=== PATIENT | male | born 1980 | race Caucasian/White ===

== ENCOUNTER 2021-09-22 15:24 | Emergency (ER) | payer OTHER, SELFPAY ==
--- NOTE | 2021-09-22 15:26 | PC.NURSE ---
pt encouraged to stay but decides to leave immediately choosing not to wait. encouraged to return if symptoms change or worsen
== END 2021-09-23 02:03 | disposition left against medical advice (07) ==
LOC: ANHED 16:11
DX: Z53.21 Procedure and treatment not carried out due to patient leaving prior to being seen by health care provider (principal)
CPT/HCPCS: 99199

== ENCOUNTER 2022-07-30 13:43 | Emergency (ER) | payer OTHER, SELFPAY ==
[2022-07-30 14:13] VITALS: BP 147/106; PULSE 88; RESP 16; TEMP 36.5; O2SAT 99
--- NOTE | 2022-07-30 14:27 | ED.WOUNDLAC ---
HPI - Wound/Laceration General Chief Complaint: Wound/Laceration Stated Complaint: Left Hand Thumb Laceration Time Seen by Provider: 07/30/22 14:20 Source: patient Mode of arrival: ambulatory Limitations: no limitations History of Present Illness HPI narrative: Mr. Hodges is a 42-year-old male patient presenting to the clinic today with complaints of a laceration to his left thumb. He reports he was cutting a brisket and cut his finger with a knife. This occurred approximately 1 hour prior to arrival he reports that it continues to bleed. Able to flex and extend his left thumb without difficulty. Tetanus unknown Related Data Home Medications Medication Instructions Recorded Confirmed albuterol sulfate 90 mcg/actuation 2 puff inhalation DIRECTED 07/30/22 07/30/22 aerosol inhaler doxycycline hyclate 100 mg capsule 100 mg PO BID 07/30/22 07/30/22 fluticasone propionate 50 1 spray intranasal DIRECTED 07/30/22 07/30/22 mcg/actuation nasal spray,suspension losartan 25 mg tablet 25 mg PO DAILY 07/30/22 07/30/22 Allergies Allergy/AdvReac Type Severity Reaction Status Date / Time No Known Allergies Allergy Verified 07/30/22 14:04 Review of Systems Review of Systems: Pertinent positives per HPI. Patient denies any fever, chills, rash, headache, visual changes, dizziness, cough, runny nose, sore throat, shortness of breath, chest pain, palpitations, nausea, vomiting, diarrhea, constipation, abdominal pain, or any urinary issues. PMFSH Family History Family History Mother Family history of arthritis Comments At the time of my signature, I reviewed and agree with the nursing past medical, surgical, social, and family history. There is no relevant family history pertinent to the patient complaint. Exam Narrative: General: Well-developed, well nourished, in no apparent distress Head: Normocephalic, atraumatic. Cardio: Regular rate and rhythm, s1 and s2 normal, no murmur appreciated. Resp: Clear to auscultation bilaterally, no rhonchi, rales, wheezing or rubs. Integumentary: [place], warm, and dry, intact without lesion, 1.5 cm laceration to the dorsal aspect across the PIP joint of the left thigh. Bleeding controlled Course Course Emergency Course: Portions of this record may have been created with voice recognition software. Level of Care: Express Care Visit Vital Signs Vital signs: Vital Signs Temperature 36.5 C 07/30/22 14:13 Pulse Rate 88 07/30/22 14:13 Respiratory Rate 16 07/30/22 14:13 Blood Pressure 147/106 H 07/30/22 14:13 Pulse Oximetry 99 07/30/22 14:13 Oxygen Delivery Room Air 07/30/22 14:13 Temperature 36.5 C 07/30/22 14:13 Pulse Rate 88 07/30/22 14:13 Respiratory Rate 16 07/30/22 14:13 Blood Pressure 147/106 H 07/30/22 14:13 Pulse Oximetry 99 07/30/22 14:13 Oxygen Delivery Room Air 07/30/22 14:13 Vital signs reviewed Procedures Laceration Laceration 1: Date: 07/30/22 Site: hand ( left thumb) Side (If applicable): left Size (cm): 1.5 Description: linear Depth: simple, single layer Local Anesthetic: lidocaine 1% Amount of anesthesia used (mL): 1.5 Pre-repair: wound explored and irrigated ====== Skin Level ====== Skin layer closed with: nylon Size (cm): 5-0 Number of sutures: 4 Technique: simple, interrupted ====== Subcutaneous Layer ====== ====== Muscle Layer ====== ====== Tendon Layer ====== Dressing: Verbal consent obtained for laceration repair. Risk and benefits explained and patient voiced understanding. Area was cleansed with dermal wash and a 25 gauge needle was then used to instill 1.5 ml of 1% lidocaine without epi into the wound edges. Area was prepped and draped using sterile technique. A 5-0 suture on a p needle was used to place (4) interrupted
[2022-07-30] MEDS: TETANUS,DIPHTHERIA,AC PERTUSSIS ADULT (0.5 ML) BOOSTRIX IM (14:54)
[2022-07-30] MEDS: LIDOCAINE HCL 1% LOCAL INJ 2 ML AMPUL INFILTRATE (14:55)
== END 2022-07-30 15:09 | disposition home or self-care (01) ==
PROVIDERS: Emergency Provider Nurse Practitioner Family
DX: S61.012A Laceration without foreign body of left thumb without damage to nail, initial encounter (principal); W26.0XXA Contact with knife, initial encounter; Y93.G9 Activity, other involving cooking and grilling; Z23 Encounter for immunization
CPT/HCPCS: 12001; 90471; 90715; 99212; G0463

== ENCOUNTER 2022-08-09 13:49 | Emergency (ER) | payer OTHER, SELFPAY ==
[2022-08-09 13:59] VITALS: BP 151/105; PULSE 81; RESP 16; TEMP 36.3; O2SAT 99
[2022-08-09 14:00] VITALS: BP 151/105; PULSE 81; RESP 16; TEMP 36.3; O2SAT 99
--- NOTE | 2022-08-09 14:08 | ED.SKABFB ---
HPI - Skin/Abscess/Foreign Bdy General Chief complaint: Skin/Abscess/Foreign Body Stated complaint: REMOVAL OF STITCHES Time Seen by Provider: 08/09/22 14:28 Source: patient and RN notes reviewed Mode of arrival: ambulatory Limitations: no limitations History of Present Illness HPI narrative: 42-year-old male presents for suture removal. Reports he had 4 sutures placed in the 1st digit of his left hand. Reports he had the stitches placed on 07/30. He denies any concerns, swelling, drainage, pain. MD complaint: other (suture removal) Related Data Home Medications Medication Instructions Recorded Confirmed albuterol sulfate 90 mcg/actuation 2 puff inhalation DIRECTED 07/30/22 08/09/22 aerosol inhaler fluticasone propionate 50 1 spray intranasal DIRECTED 07/30/22 08/09/22 mcg/actuation nasal spray,suspension losartan 25 mg tablet 25 mg PO DAILY 07/30/22 08/09/22 Allergies Allergy/AdvReac Type Severity Reaction Status Date / Time No Known Allergies Allergy Verified 08/09/22 13:59 Review of Systems Review of Systems: CONSTITUTIONAL: Denies malaise, chills, sweats, or fever. SKIN: Reports healing sutures the 1st digit left hand MUSCULOSKELETAL: Denies muscle skeletal pain All systems reviewed & are unremarkable except as noted in HPI and below PMFSH Family History Family History Mother Family history of arthritis Comments At time of signature, agree with nursing past medical, surgical, social and family history. There is no relevant family history pertinent to the presenting complaint Exam Narrative: GENERAL: Well-appearing, well-nourished, and in no acute distress. HEAD: Normocephalic, atraumatic. EYES: PERRLA, conjunctivae clear ENT: Mucous membranes moist. NECK: Supple. No lymphadenopathy CHEST: Clear to auscultation. No respiratory distress. HEART: Regular rate and rhythm. SKIN: Warm, dry. Four intact sutures noted to the 1st digit of the left hand above the MIP joint, well-approximated no induration, edema, drainage NEURO: Alert and oriented x3. PSYCH: Normal mood and affect Course Course Emergency Course: Patient is aware of diagnosis, understands and agrees to treatment plan. Anticipatory guidance given. Patient agrees to follow-up as directed and is aware of reasons to seek care at the emergency department. Portions of this record may have been created with voice recognition software Level of Care: Express Care Visit Vital Signs Vital signs: Vital Signs Temperature 97.4 F L 08/09/22 13:59 Pulse Rate 81 08/09/22 13:59 Respiratory Rate 16 08/09/22 13:59 Blood Pressure 151/105 H 08/09/22 13:59 Pulse Oximetry 99 08/09/22 13:59 Oxygen Delivery Room Air 08/09/22 13:59 Temperature 97.4 F L 08/09/22 14:00 Pulse Rate 81 08/09/22 14:00 Respiratory Rate 16 08/09/22 14:00 Blood Pressure 151/105 H 08/09/22 14:00 Pulse Oximetry 99 08/09/22 14:00 Oxygen Delivery Room Air 08/09/22 14:00 Reviewed. MDM - Skin/Abscess/Foreign Bdy MDM Narrative Medical decision making narrative: Verbal consent was obtained. Wound well approximated, no erythema, induration, or discharge noted. Four completely removed in a sterile fashion. Patient tolerated procedure well, no complications. Patient advised to look for and return for any signs of infection such as redness, swelling, discharge, or worsening pain. Critical Care Time Critical Care Time Critical Care Time: No Discharge Plan Discharge Clinical Impression: Visit for suture removal Patient Disposition: Home, Self-Care Condition: Stable Instructions: Stitches Removal (ED) Additional Instructions: AFTER the stitches are removed: Clean your wound as directed. Carefully wash your wound with soap and water. Pat the area dry with a clean towel. Protect your wound. Your wound can swell, bleed, or split open if it is stretched or b
== END 2022-08-09 14:43 | disposition home or self-care (01) ==
PROVIDERS: Emergency Provider Nurse Practitioner
DX: S61.012D Laceration without foreign body of left thumb without damage to nail, subsequent encounter (principal); X58.XXXD Exposure to other specified factors, subsequent encounter; I10 Essential (primary) hypertension
CPT/HCPCS: 99211; G0463

== ENCOUNTER 2023-01-26 13:18 | Emergency (ER) | payer OTHER, SELFPAY ==
[2023-01-26] VITALS (19 sets, daily range): BP systolic 146–181; BP diastolic 95–144; PULSE 78–108; RESP 14–25; TEMP 36.8; O2SAT 96–100
--- NOTE | ~2023-01-26 | XR_ITS ---
EXAMINATION: XR chest 2V Exam Date/Time: 01/26/2023 14:15 CDT HISTORY: dizzy, SOB HX HTN Comparison: None available. RESULT: Lines, tubes, and devices: None. Lungs and pleura: Slightly low volumes with crowding, otherwise clear. Cardiomediastinal silhouette: Unremarkable. Other: No acute osseous or upper abdominal finding. IMPRESSION: No acute cardiopulmonary process. Reviewed, dictated and finalized at location K.
--- NOTE | 2023-01-26 13:20 | ECG_ITS ---
Measurements Intervals [place] Rate: 107 P: 27 [place]: 157 QRS: 73 QRSD: 86 T: 0 QT: 323 QTc: 431 Interpretive Statements SINUS TACHYCARDIA WITH OCCASIONAL VENTRICULAR PREMATURE COMPLEXES POOR R-WAVE PROGRESSION ABNORMAL RHYTHM ECG NO PREVIOUS ECG AVAILABLE FOR COMPARISON Electronically Signed On 01-27-2023 13:56:47 CDT by Perico Prakash M.D.
[2023-01-26 14:09] LABS: Basophils Percent Auto 0.4 % (0.2-1.2); Eosinophils Absolute Auto 0.2 K/mm3 (0-0.3); Eosinophils Percent Auto 2.2 % (0-4.4); Hematocrit 43.3 % (42.0-52.0); Hemoglobin 14.9 g/dL (14.0-18.0); Immature Granulocyte Absolute 0.03 K/mm3 (0.00-0.031); Immature Granulocyte Percent A 0.4 % (0-0.5); Lymphocytes Absolute Auto 1.86 K/mm3 (0.9-3.2); Mean Corpuscular HGB Conc 34.4 g/dl (32-36); Mean Corpuscular Hemoglobin 29.4 pg (26-34); Mean Corpuscular Volume 85.4 fl (80-100); Mean Platelet Volume 9.7 fl (7.4-10.4); Monocytes Absolute Auto 0.5 K/mm3 (0.1-0.6); Monocytes Percent Auto 7.8 % (2.6-8.5); Neutrophils Absolute Auto 4.3 K/mm3 (1.3-6.7); Neutrophils Percent Auto 62.2 % (45.5-73.1); Platelet Count Result 215 k/mm3 (150-375); Red Blood Count 5.07 M/mm3 (4.6-6.20); Red Cell Distribution Width 13.5 % (11.5-14.5); White Blood Count 6.9 K/mm3 (4.5-10.0)
[2023-01-26 14:17] LABS: Alanine Aminotransferase 67 U/L (6-50); Albumin Level 4.4 g/dL (3.5-5.1); Alkaline Phosphatase 93 U/L (38-126); Anion Gap 7 mmol/L (8-16); Aspartate Amino Transferase 35 U/L (17-59); Bilirubin,Total 0.5 mg/dL (0.2-1.3); Blood Urea Nitrogen 13 mg/dL (9-20); Calcium 8.5 mg/dL (8.4-10.2); Carbon Dioxide 27 mmol/L (22-30); Chloride 103 mmol/L (98-107); Estimated CRCL calculation 221 ml/min; Estimated Glomerular Filt Rate > 60; Glucose 109 mg/dL (65-110); Sodium 137 mmol/L (137-145)
[2023-01-26] MEDS: MECLIZINE HCL 25 MG TABLET PO (15:13)
--- NOTE | 2023-01-26 16:24 | ED.GENADULT ---
HPI - General Adult General Chief complaint: Dizziness Stated complaint: dizzy, High BP Time Seen by Provider: 01/26/23 13:56 History of Present Illness HPI narrative: Patient is a 42-year-old male who presents ER with dizziness. Ongoing over the last weekend. Intermittent nature. Worse with turning his head. Associate with sinus congestion. Was on a TeleDoc visit and they told him due to the fact that he had elevated blood pressures they had to tell him to go to the ER to be evaluated. Patient with history of chronic hypertension. No chest pain or chest pressure. No change in vision. No focal weakness of an arm or leg. Related Data Home Medications Medication Instructions Recorded Confirmed albuterol sulfate 90 mcg/actuation 2 puff inhalation DIRECTED 07/30/22 08/09/22 aerosol inhaler fluticasone propionate 50 1 spray intranasal DIRECTED 07/30/22 08/09/22 mcg/actuation nasal spray,suspension losartan 25 mg tablet 25 mg PO DAILY 07/30/22 08/09/22 Allergies Allergy/AdvReac Type Severity Reaction Status Date / Time No Known Allergies Allergy Verified 08/09/22 13:59 [facility] Past Medical History Medical History (Updated 01/26/23 @ 16:54 by Thom Aden MD) Hypertension Surgical History Surgical History (Updated 01/26/23 @ 16:54 by Thom Aden MD) No pertinent past surgical history Family History Family History Mother Family history of arthritis Exam Narrative: GENERAL: Well-appearing, well-nourished, and in no acute distress. HEAD: Normocephalic, atraumatic. EYES: PERRL and EOMI. ENT: Mucous membranes moist. TMs normal bilaterally. CHEST: Clear to auscultation. No respiratory distress. HEART: Regular rate and rhythm. Normal peripheral pulses. ABDOMEN: Soft, nontender, nondistended. EXTREMITIES: Normal range of motion. No edema. SKIN: Warm, dry, no rash. NEURO: Alert and oriented x3. PSYCH: Normal mood and affect. Course Course Emergency Course: Patient resting comfortably. Feels improved with meclizine. Informed of results. Blood pressure elevated and recommend follow-up with PCP for further management. Vital Signs Vital signs: Vital Signs Temperature 98.3 F 01/26/23 13:21 Pulse Rate 108 H 01/26/23 13:21 Respiratory Rate 20 01/26/23 13:21 Blood Pressure 153/110 H 01/26/23 13:21 Pulse Oximetry 97 01/26/23 13:21 Oxygen Delivery Room Air 01/26/23 13:21 Temperature 98.3 F 01/26/23 13:21 Pulse Rate 94 01/26/23 16:32 Respiratory Rate 16 01/26/23 16:32 Blood Pressure 159/128 H 01/26/23 16:32 Pulse Oximetry 98 01/26/23 16:32 Oxygen Delivery Room Air 01/26/23 13:21 Medical Decision Making Vital Signs Vital Signs: Vital Signs Temperature 98.3 F 01/26/23 13:21 Pulse Rate 108 H 01/26/23 13:21 Respiratory Rate 20 01/26/23 13:21 Blood Pressure 153/110 H 01/26/23 13:21 Pulse Oximetry 97 01/26/23 13:21 Oxygen Delivery Room Air 01/26/23 13:21 Temperature 98.3 F 01/26/23 13:21 Pulse Rate 94 01/26/23 16:32 Respiratory Rate 16 01/26/23 16:32 Blood Pressure 159/128 H 01/26/23 16:32 Pulse Oximetry 98 01/26/23 16:32 Oxygen Delivery Room Air 01/26/23 13:21 Lab Data 01/26/23 14:02 01/26/23 14:02 Labs: Lab Results 01/26/23 01/26/23 Range/Units 14:02 14:02 WBC 6.9 (4.5-10.0) K/mm3 RBC 5.07 (4.6-6.20) M/mm3 Hgb 14.9 (14.0-18.0) g/dL Hct 43.3 (42.0-52.0) % MCV 85.4 (80-100) fl MCH 29.4 (26-34) pg MCHC 34.4 (32-36) g/dl RDW 13.5 (11.5-14.5) % Plt Count 215 (150-375) k/mm3 MPV 9.7 (7.4-10.4) fl Immature Gran % (Auto) 0.4 (0-0.5) % Neut % (Auto) 62.2 (45.5-73.1) % Lymph % (Auto) 27.0 (18.3-44.2) % Wirt % (Auto) 7.8 (2.6-8.5) % Eos % (Auto) 2.2 (0-4.4) % Baso % (Auto) 0.4 (0.2-1.2) % Lymph # (Auto) 1.86 (0.9-3.2) K/mm3 M
== END 2023-01-26 17:04 | disposition home or self-care (01) ==
PROVIDERS: Emergency Provider Emergency Medicine; PCP Family Medicine
DX: R42 Dizziness and giddiness (principal); I10 Essential (primary) hypertension; J06.9 Acute upper respiratory infection, unspecified
CPT/HCPCS: 36415; 71046; 80053; 85025; 93005; 99283; A9270

== ENCOUNTER 2024-07-19 17:15 | Emergency (ER) | payer BC, SELFPAY ==
--- NOTE | ~2024-07-19 | XR_ITS ---
EXAMINATION: XR chest 2V DATE: 07/19/2024 17:56 INDICATION: Shortness of breath. Chest tightness. TECHNIQUE: Frontal and lateral views of the chest were obtained. COMPARISON: Chest 2 views 01/26/2023 FINDINGS: There is no pneumonia, pleural effusion, or pneumothorax. The heart size is normal. IMPRESSION: 1. No acute cardiopulmonary disease. Reviewed, dictated and finalized at location A.
[2024-07-19 17:22] VITALS: BP 142/91; PULSE 73; RESP 16; TEMP 36.4; O2SAT 100
--- NOTE | 2024-07-19 17:49 | ED.ASTHMA ---
HPI - Asthma General Chief Complaint: Asthma Stated Complaint: SOB Time Seen by Provider: 07/19/24 17:49 Source: patient, RN notes reviewed and old records reviewed Mode of arrival: ambulatory Limitations: no limitations History of Present Illness HPI Narrative: Patient with history of asthma presents with complaints of exacerbation over the past week. He reports that his asthma is typically well controlled, does become exit exacerbated by exercise. States that this happened approximately 1 week ago, admits that his primary care physician did call in steroids and an albuterol inhaler. Patient only took 1 dose of steroids, and has been used his inhaler only twice per day. He is not in any distress at this time. No wheezing or stridor noted. He reports that his chest feels tight and that he would like a chest x-ray because he is afraid that he has pneumonia. States that he has noted some wheezing when he is trying to sleep at night. Denies any fever, chills, sweats. Related Data Home Medications Medication Instructions Recorded Confirmed albuterol sulfate 90 mcg/actuation 2 puff inhalation DIRECTED 07/30/22 07/19/24 aerosol inhaler losartan 25 mg tablet 25 mg PO DAILY 07/30/22 07/19/24 azithromycin 250 mg tablet 250 mg PO DIRECTED 07/19/24 07/19/24 methylprednisolone 4 mg tablets in 4 mg PO DIRECTED 07/19/24 07/19/24 a dose pack Allergies Allergy/AdvReac Type Severity Reaction Status Date / Time No Known Allergies Allergy Verified 07/19/24 17:18 Review of Systems Review of Systems: All systems reviewed & are unremarkable except as noted in HPI and below Constitutional: Constitutional: Reports no additional constitutional complaints ENT: Reports system reviewed and no additional complaints, except as documented Cardiovascular: Cardiovascular: Reports no additional cardiovascular complaints Respiratory: Respiratory: Reports no additional respiratory complaints, Reports cough and Reports wheezing Gastrointestinal: Gastrointestinal: Reports no additional gastrointestinal complaints [facility] Past Medical History Medical History (Updated 07/19/24 @ 18:16 by Maria Luisa Cain APRN) Hypertension Surgical History Surgical History No pertinent past surgical history Family History Family History Mother Family history of arthritis Comments At the time of my signature, I reviewed and agree with the nursing past medical, surgical, social, and family history. There is no relevant family history pertinent to the patient complaint. Exam Const: General: cooperative, no acute distress, alert and awake Orientation/consciousness: oriented to person, oriented to place and oriented to time HENMT: Head: normal to inspection Mouth: Yes moist mucous membranes Throat: posterior oropharynx normal Resp: Effort & Inspection: normal respiratory effort and able to speak in complete sentences Auscultation: clear to auscultation bilaterally, no crackles, no rales, no rhonchi and no wheezes Cardio: Palpation: normal PMI Rate: regular rate Rhythm: regular rhythm Heart sounds: S1 normal heart sound present and S2 normal heart sound present Neuro: General: oriented to person, oriented to place and oriented to time Cranial nerves: Yes CN's II-XII intact bilaterally Psych: Appearance: grossly normal Thought process: Normal thought process present Insight: Good insight present (Psych) Judgement: Good judgement present (Psych) Course Course Level of Care: Express Care Visit Vital Signs Vital signs: Vital Signs Temperature 97.5 F L 07/19/24 17:22 Pulse Rate 73 07/19/24 17:22 Respiratory Rate 16 07/19/24 17:22 Blood Pressure 142/91 H 07/19/24 17:22 Pulse Oximetry 100 07/19/24 17:22 Oxygen Delivery Room Air 07/19/24 17:22 Temperature 97.5 F L 07/19/24 17:22 Pulse Rate 73
== END 2024-07-19 18:20 | disposition home or self-care (01) ==
PROVIDERS: Emergency Provider Nurse Practitioner Family; PCP Family Medicine
DX: J45.901 Unspecified asthma with (acute) exacerbation (principal); I10 Essential (primary) hypertension
CPT/HCPCS: 71046; 99213; G0463

== ENCOUNTER 2025-02-21 08:47 | Emergency (ER) | payer BC, SELFPAY ==
--- NOTE | ~2025-02-21 | XR_ITS ---
CHEST RADIOGRAPH, PA AND LATERAL CLINICAL HISTORY: sob/chest tightness 5x days nonsmoker hx sports asthma . COMPARISON: 07/19/2024 TECHNIQUE: PA and lateral views of the chest. FINDINGS The cardiomediastinal silhouette is unremarkable. The lungs are clear. Trace peribronchial thickening is noted. IMPRESSION: Trace peribronchial thickening, without focal infiltrate or effusion. Reviewed, dictated and finalized at location A.
--- NOTE | 2025-02-21 08:52 | ED.ASTHMA ---
HPI - Asthma General Chief Complaint: Upper Respiratory Infection Stated Complaint: Tight feeling of chest since Time Seen by Provider: 02/21/25 08:51 Source: patient Mode of arrival: ambulatory Limitations: no limitations History of Present Illness HPI Narrative: Bill is a 44-year-old male patient presenting to the clinic today with complaints of chest tightness x4 days. He reports has a nonproductive cough. Has felt like he has had chills and body aches. Has not tested for COVID. Had a telehealth visit on Thursday and was prescribed a Z-Jose Daniel and steroid. States he has taken those for 2 days and has no relief in symptoms. Also reports feeling lightheaded at times. Related Data Home Medications Medication Instructions Recorded Confirmed Last Taken Type albuterol sulfate 90 mcg/actuation 2 puff inhalation DIRECTED 07/30/22 02/21/25 Unknown History aerosol inhaler losartan 25 mg tablet 25 mg PO DAILY 07/30/22 02/21/25 Unknown History azithromycin 250 mg tablet 250 mg PO DIRECTED 07/19/24 02/21/25 Unknown History methylprednisolone 4 mg tablets in 4 mg PO DIRECTED 07/19/24 02/21/25 Unknown History a dose pack Allergies Allergy/AdvReac Type Severity Reaction Status Date / Time No Known Allergies Allergy Verified 07/19/24 17:18 Review of Systems Review of Systems: Pertinent positives per HPI. Patient denies any fever, chills, rash, headache, visual changes, dizziness, palpitations, nausea, vomiting, diarrhea, constipation, abdominal pain, or any urinary issues. PMFSH Past Medical History Medical History Hypertension Surgical History Surgical History No pertinent past surgical history Family History Family History Mother Family history of arthritis Comments At the time of my signature, I reviewed and agree with the nursing past medical, surgical, social, and family history. There is no relevant family history pertinent to the patient complaint. Exam Narrative: General: Well-developed, obese, in no apparent distress Head: Normocephalic, atraumatic Eyes: Pupils equally round and reactive to light bilaterally, EOM intact, sclera and conjunctive clear, no discharge, lids normal Ears: TMs intact and clear, ear canals clear, no drainage, grossly hearing normal. Nose: Nares patent, no discharge, no inflammation, no sinus tenderness. Mouth: Oral pharynx without lesions or masses, good dentition, MMM. Neck: Supple, trachea midline, no enlargement of anterior or posterior cervical nodes, no thyroid masses or goiter palpable. Cardio: Regular rate and rhythm, s1 and s2 normal, no murmur appreciated. Resp: Lung sounds diminished in the bases, no rhonchi, rales, wheezing or rubs Course Course Emergency Course: Portions of this record may have been created with voice recognition software. Level of Care: Express Care Visit Vital Signs Vital signs: Vital Signs Temperature 36.7 C 02/21/25 09:00 Pulse Rate 76 02/21/25 09:00 Respiratory Rate 18 02/21/25 09:00 Blood Pressure 177/111 H 02/21/25 09:00 Pulse Oximetry 98 02/21/25 09:00 Oxygen Delivery Room Air 02/21/25 09:00 Temperature 36.7 C 02/21/25 09:00 Pulse Rate 76 02/21/25 09:00 Respiratory Rate 18 02/21/25 09:00 Blood Pressure 152/106 H 02/21/25 09:32 Pulse Oximetry 98 02/21/25 09:00 Oxygen Delivery Room Air 02/21/25 09:00 Vital signs reviewed MDM - Asthma MDM Narrative Medical decision making narrative: At the time of visit patient is resting comfortably on the exam table. Patient appears to be nontoxic. EKG: EKG shows sinus rhythm with a heart rate of 70 beats per minute without ST elevation, depression, or T-wave inversion. Labs: COVID and influenza testing was performed and negative in the clinic today. Diagnostics: Chest x-ray was performed and shows peribronchial thickening. No sign of pneumonia or effusion. Plan: I suspect patient has bronchitis. Supportive measures were discussed with the patient and they voiced understanding discharge instructions and agrees to treatment plan. Return precautions reviewed Differential Diagnosis Differential diagnosis: Likely Acute exacerbation, Status asthmaticus, Acute asthmatic bronchitis, Pneumonia, COPD exacerbation, Pulmonary edema systolic and Pneumothorax Lab Data Labs: Lab Results 02/21/25 02/21/25 Range/Units 09:18 09:24 POC Influenza A Ag Negative (Negative) POC Influenza B Ag Negative (Negative) POC SARS CoV-2 Ag Negative (Negative) Imaging Data Radiologist's impression: ITS Impressions Chest X-Ray 02/21/25 09:14 IMPRESSION: Trace peribronchial thickening, without focal infiltrate or effusion. ECG Data EKG #1: Attestation: I personally reviewed and interpreted this ECG as follows: ECG completion date: 02/21/25 ECG completion time: 09:33 Prior ECG tracings: not available for review Interpretation: EKG shows normal sinus rhythm with heart rate 78 beats per minute without ST elevation, depression, or T-wave inversion. OR interval is 136 milliseconds, QRS durations 90 milliseconds, QT-QTC is 361-394 milliseconds, P-R-T axis is 14 39 5 Discharge Plan Discharge Clinical Impression: Bronchitis Patient Disposition: Home Condition: Stable Instructions: Antibiotic Form, Acute Bronchitis (ED) Additional Instructions: Take prescription medications only as prescribed-albuterol inhaler Continue taking azithromycin and methylprednisone as directed Increase fluids and stay well hydrated Tylenol/motrin for pain/fever Flonase and OTC antihistamines as directed Vicks vapor rub to open sinuses Sinus rinses for congestion Cepacol spray, cough drops, throat lozenges, warm tea with honey/lemon, gargle salt water to soothe throat BRAT diet for diarrhea Clear liquids x 24 hours then advance as tolerated for nausea/vomiting Go to the ED if you develop a worsening in your condition- high fever not controlled by Tylenol or Motrin, dehydration, weakness, lethargy, shortness of breath, or chest pain. Follow up with your PCP in 3-5 days if symptoms persist. Patient Language: [place] Prescriptions: No Action losartan 25 mg tablet 25 mg PO DAILY albuterol sulfate 90 mcg/actuation HFA aerosol inhaler 2 puff INHALATION DIRECTED azithromycin 250 mg tablet 250 mg PO DIRECTED methylprednisolone 4 mg tablets,dose pack 4 mg PO DIRECTED Follow-up/Referrals: Duong Espana APRN [Emergency Provider] - Time of Disposition: 09:44 Quality NIHSS Nursing Documentation ED NIHSS nursing documentation: reviewed/agree
[2025-02-21 09:00] VITALS: BP 177/111; PULSE 76; RESP 18; TEMP 36.7; O2SAT 98
--- NOTE | 2025-02-21 09:04 | ECG_ITS ---
Test Date: 2025-02-21 09:33:38 Measurements Intervals [place] Rate: 78 P: 14 [place]: 136 QRS: 39 QRSD: 90 T: 5 QT: 361 QTc: 412 Interpretive Statements SINUS RHYTHM No previous ECG available for comparison Electronically Signed On 02-21-2025 13:37:16 CDT by Perico Prakash M.D.
[2025-02-21 09:20] LABS: EDCOVIDSCREEN Negative (Negative)
[2025-02-21 09:26] LABS: EDINFLUASCREEN Negative (Negative); EDINFLUBSCREEN Negative (Negative)
[2025-02-21 09:32] VITALS: BP 152/106
== END 2025-02-21 09:52 | disposition home or self-care (01) ==
PROVIDERS: Emergency Provider Nurse Practitioner Family
DX: J40 Bronchitis, not specified as acute or chronic (principal); Z20.822 Contact with and (suspected) exposure to COVID-19; I10 Essential (primary) hypertension
CPT/HCPCS: 71046; 87426; 87804; 93005; 99213; G0463

== ENCOUNTER 2025-06-09 16:16 | Emergency (ER) | payer BC, SELFPAY ==
--- NOTE | ~2025-06-09 | XR_ITS ---
EXAMINATION: XR chest 2V 06/09/2025 19:29 INDICATION: Congestion PROCEDURE: 2 view chest COMPARISON: 02/21/2025 FINDINGS: The lungs are clear. The cardiomediastinal silhouette is within normal limits. There are no pleural effusions. There is no pneumothorax suspected. IMPRESSION: 1: NO ACUTE CARDIOPULMONARY DISEASE. Reviewed, dictated and finalized at location O.
--- NOTE | ~2025-06-09 | CT_ITS ---
EXAMINATION: CTA brain carotid DATE: 06/09/2025 20:02 CDT INDICATION: Headache. Neck pain. TECHNIQUE: Computed tomographic angiography (CTA) of the head was performed without and with 100 mL Omnipaque-350 intravenous contrast. CTA of the neck was performed with intravenous contrast. The dose-length product was 1820.91 mGy-cm. Maximum intensity projection and volume rendered 3D-reconstructions were created by the technologist on a separate workstation. COMPARISON: None. FINDINGS: HEAD CTA: Normal brain parenchymal volume. No acute infarction, hemorrhage, mass or mass effect. No ventriculomegaly or midline shift. Basilar cisterns are patent. Paranasal sinuses and mastoids are pneumatized. No depressed skull fractures. There are codominant vertebral arteries. The intracranial arteries are within normal limits without significant stenosis, occlusion or aneurysm. NECK CTA: Lung apices are normal. No significant stenosis of the carotid arteries. No evidence for occlusion or dissection. Vertebral arteries are normal in their extent. The origin of the carotid and vertebral arteries are within normal limits. No cervical lymphadenopathy. IMPRESSION: 1.: Unremarkable CT angiogram of the head and neck. Reviewed, dictated and finalized at location O.
[2025-06-09 16:19] VITALS: BP 175/111; PULSE 94; RESP 20; TEMP 36.4; O2SAT 99
--- OUTSIDE RECORDS SUMMARY | 2025-06-09 18:18 | XMS_ITS | Encounter Summary ---
Author Organization [facility] Address [address] [place] [address] Phone Care Team Providers Care Crayon Grader Name Role Phone Marcial Thompson MD Primary Care Provider [phone] Dc Torres MD Unavailable Reason for Visit * Reason Comments Medication Refill Encounter Details Date Type Department Care Team (Late st Contact Info) Description 07/10/2023 Refill [facility] - [facility] [address]2 [place] [address] Marcial Thompson MD #[address] [address] Medication Refill Social History Tobacco Use Types Packs/Day Years Used Date Smoking Tobacco: Former Cigarettes 1.5 9 0 10/05/1996 - 10/05/2003 Smokeless Tobacco: Never Alcohol Use Standard Drinks/Week Comments Never 0 (1 standard drink = 0.6 oz pur e alcohol) AUDIT-C Answer Date Recorded Frequency of Alcohol Consumption Never 04/13/2019 Average Number of Drinks Not on file 019 Frequency of Binge Drinking Not on file 04/04 PHQ-2 Answer Date Recorded Total Score - Questions 1-9 0 06/05 Education Answer Date Recorded What is the highest level of school you have completed or the highest degree you have received? Master's degree (e.g., MA, MS, Margy, MEd, TAXICAB DISPATCHER, YESENIA) 08/20/2020 Sexually Active Control Partners Comments Not Currently Female Sex and Gender Information Value Date Recorded Sex Assigned at Not on file Legal Sex Male 9:24 PM CDT Gender Identity Not on file Sexual Orientation Not on file COVID-19 Exposure Response Date Recorded In the last 10 days, have yo u been in contact with someone who was confirmed or suspected to have Coronavirus/COVID-19? No / Unsure 07/06/2023 9:33 AM CDT documented as of this encounter Miscellaneous Notes * Telephone Encounter - Wendie Campos RN - 07/13/2023 8:04 AM CDT Medication failed the protocol, provider to review and approve the medication order if appropriate. Requested Prescriptions Pending Prescriptions Disp Refills losartan (COZAAR) 25 MG Tablet [Pharmacy Med Name: Losartan Potassium 25 MG Oral Tablet] 90 Tablet 3 Sig: Take 1 tablet by mouth once daily ARB Protocol Failed - 07/10/2023 6:08 PM Failed - Serum potassium on record in past 12 months No results found for: POTASSIUM, POCTK Failed - GFR on record in past 12 months No results found for: GFRNA Passed - BP on record in the past year Clinician-entered: BP Readings from Last 3 Encounters: 07/06/23 130/86 08/12/22 138/88 07/30/22 (!) 158/100 Patient-entered: No data recorded Passed - Visit with relevant provider in past year or upcoming 90 days Recent Visits Date Type Provider Dept 07/06/23 Office Visit [facility] APRN, REGIONAL DRIVER [facility] 05/28/23 Telemedicine Marcial Thompson MD [facility] 01/28/23 Telemedicine Pippa Victoria APRN, REGIONAL DRIVER [facility] 10/09/22 Telemedicine Marcial Thompson MD [facility] 07/17/22 Office Visit Marcial Thompson MD [facility] Showing recent visits within past 365 days and meeting all other requirements Future Appointments No visits were found meeting these conditions. Showing future appointments within next 90 days and meeting all other requirements documented in this encounter Plan of Treatment Upcoming Encounters Date Type Department Care Team (Late st Contact Info) Description 06/14/2025 1:00 PM CDT Office Visit [facility]2 [place] [address] Marcial Thompson MD #[address] [address] 07/05/2025 9:00 AM CDT Office Visit [facility] #2 [place] [address] Marcial Thompson MD #[address] [address] 07/20/2025 12:00 PM CDT [facility] [address] [place] [address] Dc Torres MD #[address] [address] 07/20/2025 12:00 PM CDT - 07/20/2025 12:30 PM CDT [facility] [address] [place] [address] Dc Torres MD #[address] [address] COLONOSCOPY Scheduled Procedures Name Priority Associated Diagnoses Date/Ti me COLONOSCOPY SCREENING FOR COLON CANCER 07/20/2025 12:00 PM CDT documented as of this encounter Visit Diagnoses Not on filedocumented in this encounter Additional Health Concerns Assessment Noted Time PHQ-9 Depression Total Score: 0 07/02/20 3:00 PM CDT documented as of this encounter Care Teams Crayon Grader Relationship Specialty Start Date End Date Marcial Thompson MD #2 [facility] [address] [place] [address] PCP - General Family Medicine 08/13/15 Dc Torres MD #2 [facility] [address] [place] [address] Consulting Physician Colon and Rectal Surgery 07/29/22 documented as of this encounter
--- OUTSIDE RECORDS SUMMARY | 2025-06-09 18:18 | XMS_ITS | Clinical Summary ---
Author Organization [facility] Address [address] [place] [address] Care Team Providers Care Sequencing Machine Operator Name Role Phone Unavailable Primary Care Provider Unavailabl e Source Comments [facility],non-owned Affiliates and Associated Physician Practices is amultiple site organization consisting of ambulatory clinics and hospital sitesin [place], [place], [place] and [place]. This disclosure is being madepursuant to the Care Everywhere program and may not contain all information available regarding this patient. Last updated [email or web address] Allergies No known active allergies Social History Tobacco Use Types Packs/Day Years Used Date Smoking Tobacco: Never Assessed Sex and Gender Information Value Date Recorded Sex Assigned at Not on file Legal Sex Male 1:07 PM CDT Gender Identity Not on file Sexual Orientation Not on file Last Filed Vital Signs Vital Sign Reading Time Taken Comments Blood Pressure 163/101 09/24/2021 9:32 PM REMOTE SENSING SCIENTIST Pulse 82 09/24/2021 6:04 PM REMOTE SENSING SCIENTIST Temperature 36.8 C (98.2 F) 09/24/2021 6:04 PM REMOTE SENSING SCIENTIST Respiratory Rate 18 09/24/2021 6:04 PM REMOTE SENSING SCIENTIST Oxygen Saturation 97% 09/24/2021 6:04 PM REMOTE SENSING SCIENTIST Inhaled Oxygen Concentration - - Weight 122 kg (269 lb) 09/24/2021 6:04 PM REMOTE SENSING SCIENTIST Height 182.9 cm (6') 09/24/2021 6:04 PM REMOTE SENSING SCIENTIST Body Mass Index 36.48 09/24/2021 6:04 PM REMOTE SENSING SCIENTIST Plan of Treatment Health Maintenance Due Date Last Done Comments COLOGUARD (AGES 45-75) - COL ON CA SCREENING 1980 COLON MONITORING 1980 COLONOSCOPY - COLON CA SCREENING 1980 CT COLONOGRAPHY - COLON CA SCREENING 1980 Colorectal Cancer Screening 1980 FIT - COLON CA SCREENING 1980 FLEX SIG - COLON CA SCREENING 1980 LIPID TESTING 1980 HIV SCREENING 1995 HEPATITIS C SCREENING 03/10/1998 DTAP/TDAP/TD VACCINES (1 - Tdap) 1999 HEPATITIS B VACCINE (1 of 3 - 19+ 3-dose series) 1999 HPV VACCINE (1 - 3-dose SCDM series) 2007 COVID-19 VACCINE (1 - 2023-2 5 season) 2024 DEPRESSION SCREENING 10/05/2024 INFLUENZA VACCINE (#1) 2025 ZOSTER VACCINE (1 of 2) 2030 HIB VACCINE Aged Out No longer eligi ble based on patient's age to complete this topic MENINGOCOCCAL (Group B) VACC INE SHARED DECISION-MAKING Aged Out No longer eligibl e based on patient's age to complete this topic MENINGOCOCCAL GROUPS A/C/Y/W VACCINE Aged Out No longer eligible b ased on patient's age to complete this topic PNEUMOCOCCAL VACCINE Aged Out No long er eligible based on patient's age to complete this topic
--- OUTSIDE RECORDS SUMMARY | 2025-06-09 18:18 | XMS_ITS | Clinical Summary ---
Author Organization [facility] Address [address] [facility] [address] [place] [address] Phone Care Team Providers Care Gameplay Engineer Name Role Phone Marcial Thompson MD Primary Care Provider [phone] Dc Torres MD Unavailable Allergies No known active allergies Medications Loratadine-Pseu doephedrine (CLARITIN-D 12 HOUR PO) Take by mouth. Activ e ibuprofen (MOTRIN) 800 MG TabletIndicatio ns:Bilateral arm pain Take 1 Tablet by mouth every 8 hours. 45 Tablet 1 1 Active fluticasone (FLONASE) 50 MCG/ACT Suspension 1-2 Sprays by Nasal route daily. Use in each nostril as directed. 18.2 mL 3 3 Active albuterol 108 (90 Base) MCG/ACT Aerosol Solution INHALE 1 TO 2 PUFFS BY MOUTH EVERY 4 HOURS NEEDED FOR COUGH 18 g 1 4 Active Respiratory Therapy Supplies (Nebulizer/Tubi ng/Mouthpiece) KitIndications: Exacerbation of asthma, unspecified asthma severity, unspecified whether persistent Use as directed 1 Each 5 Active Additional Information Patient not taking.Reported on 05/16/2025 albuterol (PROVENTIL, VENTOLIN) (2.5 MG/3ML) 0.083% Nebulizer SolnIndications :Exacerbation of asthma, unspecified asthma severity, unspecified whether persistent 3 mL by Nebulization route every 6 hours as needed for Wheezing or Shortness of Breath. 375 mL 1 5 Active losartan (COZAAR) 25 MG Tablet Take 1 Tablet by mouth daily. 90 Tablet 3 Active azithromycin (ZITHROMAX) 250 MG Tablet TAKE 2 TABLETS BY MOUTH ON DAY 1, AND THEN TAKE 1 TABLET BY MOUTH ONCE A DAY ON DAY 2 THROUGH DAY 5 Active predniSONE (DELTASONE) 5 MG Tablet take 1 tablet by mouth every 12 hours for 5 days 5 Active Active Problems Problem Noted Date Diagnosed Date Environmental and seasonal allergies 04/26/2025 Mild intermittent asthma without complication Snoring 03/20/2025 Exacerbation of asthma 07/28/2024 Otalgia of both ears 05/28/2023 Hyperglycemia 07/17/2022 Low testosterone in male 09/26/2021 Noncompliance 07/02/2021 Hypertension 07/02/2021 Rectal pain 07/02/2021 Obesity (BMI 30-39.9) 07/02/2021 COVID-19 08/20/2020 Overview (08/20/2020): Lipoma of head 04/13/2019 Hyperlipidemia 03/24/2019 PNAR (perennial non-allergic rhinitis) 6 Fatigue 05/12/2016 Primary insomnia 05/12/2016 Resolved Problems Problem Noted Date Diagnosed Date Resolved Date Anxiety 05/12/2016 03/24/2019 Encounters Date Type Department Care Team Description 06/09/2025 Travel 05/16/2025 9:15 AM CDT Office Visit [facility] Medical [facility] - General Surgery [facility] [address] [id number] Marcial Thompson MD Kumar, Raman, MD Special screening for malignant neoplasms, colon (Primary Dx) Discharge Disposition: Discharged to home or Selfcare 05/16/2025 Travel 04/26/2025 8:15 AM CDT Office Visit [facility] Family Medicine [facility] [address] [place] [phone] Steffanie Bergeron, MUSIC SUPERVISOR, SENIOR C SOFTWARE ENGINEER Acute intractable tension-type headache (Primary Dx); Environmental and seasonal allergies; Primary hypertension Discharge Disposition: Discharged to home or Selfcare 04/25/2025 Travel 04/19/2025 2:36 PM CDT - 04/19/2025 6:15 PM CDT Emergency [facility] [address] [place] [address] Bryant Worley MD Nonintractable headache, unspecified chronicity pattern, unspecified headache type Discharge Disposition: Discharged to home or Selfcare 04/19/2025 1:50 PM CDT Urgent Care Visit [facility] [address] [place] [address] Provider, [facility] Acute nonintractable headache, unspecified headache type (Primary Dx) Discharge Disposition: Discharged to home or Selfcare 04/19/2025 [facility]phone [facility] [place] [address] Marcial Thompson MD 04/19/2025 Travel 03/20/2025 11:15 AM CDT [facility] [place] [address] Marcial Thompson MD Primary hypertension (Primary Dx); Obesity (BMI 30-39.9); Mild intermittent asthma without complication; Snoring; Screening for colon cancer; Screening for prostate cancer; Hyperlipidemia, unspecified hyperlipidemia type; Vitamin D deficiency Discharge Disposition: Discharged to home or Selfcare 03/20/2025 [facility]phone [facility] [place] [address] Marcial Thompson MD 03/20/2025 Travel from Last 3 Months Immunizations Immunization Administration Dates Next Due TDAP Vaccine 07/30/2022 Family History Medical History Relation Name Comments Hypertension Father Andrew Cancer Maternal Cousin throat cance r Chronic Obstructive Pulmonary Disease Maternal Grandfa ther Chronic Obstructive Pulmonary Disease Maternal Grandmo ther Leukemia/Lymphoma Maternal Uncle Anxiety disorder Mother Dementia Paternal Grandfather Diabetes Paternal Grandfather No Known Problems Paternal Grandmother Anxiety disorder Sister 1 No Known Problems Sister 2 Relation Name Status Comments Father Andrew Alive Maternal Cousin Maternal Grandfather Maternal Grandmother Maternal Uncle Mother Alive Paternal Grandfather Paternal Grandmother Alive Sister 1 Alive Sister 2 Alive Social History Tobacco Use Types Packs/Day Years Used Date Smoking Tobacco: Former Cigarettes 1.5 9 0 10/05/1996 - 10/05/2003 Smokeless Tobacco: Never Tobacco Cessation:Counseling Given: No Alcohol Use Standard Drinks/Week Comments Never 0 (1 standard drink = 0.6 oz pur e alcohol) [facility] Utilities Answer Date Recorded In the past 12 months has e electric, gas, oil, or water company threatened to shut off services in your home? Yes 07/04/2024 Social Connection and Isolation Panel Answer Date Recorded In a typical week, how many times do you talk on the phone with family, friends, or neighbors? More than three times a week 07/04/2024 How often do you get togethe r with friends or relatives? More than three times a week 07/04/2024 How often do you attend chur ch or restorationism services? More than 4 times per year 07/04/2024 Do you belong to any clubs o r organizations such as christianity groups, unions, fraternal or athletic groups, or school groups? Yes 07/04/2024 How often do you attend meet ings of the clubs or organizations you belong to? More than 4 times per year 07/04/2024 Are you , , di vorced, , never , or living with a partner? 07/04/2024 AUDIT-C Answer Date Recorded Q1: How often do you have a drink containing alcohol? Patient declined 07/04/2024 Q2: How many drinks containi ng alcohol do you have on a typical day when you are drinking? Patient does not drink Q3: How often do you have si x or more drinks on one occasion? Patient declined 07/04/2024 Overall Financial Resource Strain (CARDIA) Answe r Date Recorded How hard is it for you to pa y for the very basics like food, housing, medical care, and heating? Somewhat hard 07/04/2024 PHQ-2 Answer Date Recorded Total Score - Questions 1-9 0 03/05 [facility] - Occupational Stress Questionnaire Answer Date Recorded Do you feel stress - tense, restless, nervous, or anxious, or unable to sleep at night because your mind is troubled all the time - these days? Not at all 07/04/2024 Exercise Vital Sign Answer Date Recorde d On average, how many days pe r week do you engage in moderate to strenuous exercise (like a brisk walk)? 7 days 07/04/2024 On average, how many minutes do you engage in exercise at this level? 120 min 07/04/2024 Hunger Vital Sign Answer Date Recorded Within the past 12 months, y ou worried that your food would run out before you got the money to buy more. Patient declined Within the past 12 months, t he food you bought just didn't last and you didn't have money to get more. Patient declined PRAPARE - Transportation Answer Date Re corded In the past 12 months, has l ack of transportation kept you from medical appointments or from getting medications? Patient declined 07/04/2024 In the past 12 months, has l ack of transportation kept you from meetings, work, or from getting things needed for daily living? Patient declined 07/04/2024 Housing Stability Vital Sign Answer Ronan e Recorded In the last 12 months, was t here a time when you were not able to pay the mortgage or rent on time? Patient declined 07/04/20 24 In the past 12 months, how m any times have you moved where you were living? 0 07/04/2024 At any time in the past 12 m [facility], were you homeless or living in a custodial (including now)? No 07/04/2024 Education Answer Date Recorded What is the highest level of school you have completed or the highest degree you have received? Master's degree (e.g., MA, MS, Margy, MEd, TOOL MACHINIST, YESENIA) 08/20/2020 Sexually Active Control Partners Comments Not Currently Abstinence Female Sex and Gender Information Value Date Recorded Sex Assigned at Not on file Legal Sex Male 9:24 PM CDT Gender Identity Not on file Sexual Orientation Not on file Last Filed Vital Signs Vital Sign Reading Time Taken Comments Blood Pressure 192/102 05/16/2025 9:08 AM CDT Pulse 86 05/16/2025 9:08 AM CDT Temperature 36.1 C (97 F) 05/16/2025 9:08 AM CDT Respiratory Rate 16 04/26/2025 8:17 AM CDT Oxygen Saturation 98% 05/16/2025 9:08 AM CDT Inhaled Oxygen Concentration - - Weight 134.3 kg (296 lb) 05/16/2025 9:08 AM CDT Height 180.3 cm (5' 11) 05/16/2025 9:08 AM CDT Body Mass Index 41.28 05/16/2025 9:08 AM CDT Plan of Treatment Upcoming Encounters Date Type Department Care Team (Late st Contact Info) Description 06/14/2025 1:00 PM CDT [facility] [place] [address] Marcial Thompson MD #[address] [address] 07/05/2025 9:00 AM CDT [facility] [place] [address] Marcial Thompson MD #[address] [address] 07/20/2025 12:00 PM CDT Hospital Encounter [facility] Periop 1 [place] [address] Dc Torres MD #[address] [address] 07/20/2025 12:00 PM CDT - 07/20/2025 12:30 PM CDT [facility] [address] [place] [address] Dc Torres MD [address] [address] COLONOSCOPY Scheduled Procedures Name Priority Associated Diagnoses Date/Ti me COLONOSCOPY SCREENING FOR COLON CANCER 07/20/2025 12:00 PM CDT Health Maintenance Due Date Last Done Comments Hepatitis B Immunization (1 of 3 - 19+ 3-dose series) 1999 Pneumococcal Immunization Co mbined (1 of 2 - PCV) 1999 Human Papillomavirus (HPV) Immunization (1 - 3-dose SCDM series) 2007 Cologuard 2025 Colonoscopy 2025 Colorectal Cancer Screening 2025 Immunochemical Fecal Occult Blood 2025 Influenza Immunization (#1) 2025 SARS-COV-2 Immunization ( - ) 06/05/2025 Td Immunization Every 10 Yea rs (Adults With 1 Tdap) 07/30/2032 07/30/2022 Respiratory Syncytial Virus (RSV) Immunization (Adult) (1 - 1-dose 75+ series) 2055 Hepatitis C Virus (HCV) Screening Completed 021 Meningococcal Immunization (ACWY) Aged Out No longer eligible based on patient's age to complete this topic Rotavirus Immunization Aged Out No lo nger eligible based on patient's age to complete this topic Procedures Procedure Name Priority Date/Time Associated Diagnosis Comments CT HEAD OR BRAIN WO CONTRAST Stat with Interpretation 04/19/2025 4:21 PM CDT EKG 12 LEAD STAT 04/19/2025 2:34 PM CDT EKG SCAN 04/19/2025 12:00 AM CDT HEPATITIS PANEL ACUTE (AHP) Routine 09/18/2021 12:00 AM GRID MAKER Exposure to sexually transmitted disease (STD) from Last 3 Months or Most Recently Relevant to Health Maintenance Results * CT HEAD OR BRAIN WO CONTRAST (04/19/2025 4:21 PM CDT) Anatomical Region Laterality Modality Head N/A Computed Tomogra phy 04/19/2025 4:40 PM CDT Impressions 04/19/2025 4:42 PM CDT IMPRESSION: No acute intracranial findings. Narrative 04/19/2025 4:42 PM CDT EXAM DESCRIPTION: CT HEAD OR BRAIN WO CONTRAST REASON FOR STUDY: right sided headache, elevated BP x 4 days. pt states pain radiates into right side of neck. Hx of HTN TECHNIQUE: Axial images acquired through the brain without intravenous contrast. Images stored on PACS. Automated exposure control was used as a dose optimization technique for this examination. COMPARISON: None FINDINGS: BRAIN: No hemorrhage, edema or mass effect. No recent infarct. Normal white matter. EXTRA-AXIAL SPACES: No fluid collections. No masses. CALVARIUM: No fracture. SINUSES/MASTOIDS: No fluid or mucosal thickening. ORBITS: No significant abnormality. OTHER: No other significant abnormality. THIS IS AN ELECTRONICALLY VERIFIED FINAL REPORT 04/19/2025 4:40 PM - Electronically signed by Torsten Alexander M.D. BS: BS Report ID: [id number] Reading Location: [id number] Procedure Note Torsten Alexander MD - 04/19/2025 EXAM DESCRIPTION: CT HEAD OR BRAIN WO CONTRAST REASON FOR STUDY: right sided headache, elevated BP x 4 days. pt states pain radiates into right side of neck. Hx of HTN TECHNIQUE: Axial images acquired through the brain without intravenous contrast. Images stored on PACS. Automated exposure control was used as a dose optimization technique for this examination. COMPARISON: None FINDINGS: BRAIN: No hemorrhage, edema or mass effect. No recent infarct. Normal white matter. EXTRA-AXIAL SPACES: No fluid collections. No masses. CALVARIUM: No fracture. SINUSES/MASTOIDS: No fluid or mucosal thickening. ORBITS: No significant abnormality. OTHER: No other significant abnormality. THIS IS AN ELECTRONICALLY VERIFIED FINAL REPORT 04/19/2025 4:40 PM - Electronically signed by Torsten Alexander M.D. BS: BS Report ID: [id number] Reading Location: [id number] IMPRESSION: No acute intracranial findings. Bryant Worley MD IMG CT ORDERABLES Final Re sult * EKG 12 LEAD (04/19/2025 2:34 PM CDT) Ventricular Rate 91 BPM EXTERNAL EKG Atrial Rate 91 BPM EXTERNAL EKG P-R Interval 152 ms EXTERNAL EKG QRS Duration 88 ms EXTERNAL EKG Q-T Duration 360 ms EXTERNAL EKG QTC CALCULATION 442 ms EXTERNAL EKG P [place] 23 degrees EXTERNAL EKG R [place] 52 degrees EXTERNAL EKG T [place] 5 degrees EXTERNAL EKG 04/19/2025 2:34 PM CDT Impressions EXTERNAL EKG - 04/21/2025 10:34 AM CDT Normal sinus rhythm Normal ECG When compared with ECG of 01-OCT-2021 07:44, No significant change was found Confirmed by Kishore Pop ([id number]) on 04/21/2025 10:34:44 AM Narrative Procedure Note Kishore Pop MD PhD - 04/21/2025 IMPRESSION: Normal sinus rhythm Normal ECG When compared with ECG of 01-OCT-2021 07:44, No significant change was found Confirmed by Kishore Pop ([id number]) on 04/21/2025 10:34:44 AM Bryant Worley MD IMG ECG ORDERABLES Final R esult Performing Organization Address City/[facility]/ZIP Co de Phone Number EXTERNAL EKG * EKG SCAN (04/19/2025 12:00 AM CDT) 04/19/2025 Provider Scan IMG ECG ORDERABLES Final Result RESULTING AGENCY * HEPATITIS PANEL ACUTE (AHP) (09/18/2021 12:00 AM GRID MAKER) Blood 09/18/2021 Marcial Thompson MD HEMATOLOGY ORDERABLES Fin al Result SCAN from Last 3 Months or Most Recently Relevant to Health Maintenance Insurance [facility] Care Teams Gameplay Engineer Relationship Specialty Start Date End Date Marcial Thompson MD #2 [facility] [address] [place] [address] PCP - General Family Medicine 08/13/15 Dc Torres MD #2 [facility] [address] [place] [address] Consulting Physician Colon and Rectal Surgery 07/29/22
--- OUTSIDE RECORDS SUMMARY | 2025-06-09 18:18 | XMS_ITS | Clinical Summary ---
Author Organization [facility] Address [address] [place] [address] Care Team Providers Care Layer Out Name Role Phone None, Provider MD Primary Care Provider Unavaila ble Allergies No known active allergies Medications losartan (COZAAR) 25 MG tablet Take 25 mg by mouth daily. 08/27/2022 Active Social History Tobacco Use Types Packs/Day Years Used Date Smoking Tobacco: Former Cigarettes Smokeless Tobacco: Never Tobacco Cessation:Counseling Given: Not Answered Alcohol Use Standard Drinks/Week Comments Never 0 (1 standard drink = 0.6 oz pur e alcohol) Sex and Gender Information Value Date Recorded Sex Assigned at Not on file Legal Sex Male 5:03 PM LPN RN Gender Identity Not on file Sexual Orientation Not on file Last Filed Vital Signs Vital Sign Reading Time Taken Comments Blood Pressure 162/88 10/07/2022 9:30 PM LPN RN Pulse 74 10/07/2022 9:30 PM LPN RN Temperature 36.3 C (97.3 F) 10/07/2022 6:12 PM LPN RN Respiratory Rate 18 10/07/2022 9:30 PM LPN RN Oxygen Saturation 97% 10/07/2022 9:30 PM LPN RN Inhaled Oxygen Concentration - - Weight 122.5 kg (270 lb) 10/07/2022 6:12 PM LPN RN Height 180.3 cm (5' 11) 10/07/2022 6:12 PM LPN RN Body Mass Index 37.66 10/07/2022 6:12 PM LPN RN Plan of Treatment Health Maintenance Due Date Last Done Comments Colorectal Cancer Screening Colonoscopy (10 Years) 1980 Annual Physical 1983 Hepatitis C 1998 Hepatitis B Vaccines (1 of 3 - 19+ 3-dose series) 1999 HPV Vaccines (1 - 3-dose SCD M series) 2007 COVID-19 Vaccine (1 - 2023-2 5 season) 2024 DTaP, Tdap and Td Vaccines ( 2 - Td or Tdap) 07/30/2032 07/30/2022 Meningococcal B Vaccine Aged Out No l onger eligible based on patient's age to complete this topic Meningococcal Vaccine Aged Out No olivia chantelle eligible based on patient's age to complete this topic Pneumococcal Vaccine: Pediat rics (0 to 5 Years) and At-Risk Patients (6 to 49 Years) Aged Out No longer eligi ble based on patient's age to complete this topic RSV Immunizations Under 20 Months Aged Out No longer eligible based on patient's age to complete this topic Insurance * Guarantor: Bill Hodges Account Type Relation to Patient Date of Phone Billing Address Personal/Family Self 1980 [address] [place] [address] [facility] Care Teams Layer Out Relationship Specialty Start Date End Date None, Provider, PCP - General UNKNOWN PHYSICIAN SPECIALTY 10/07/22
--- OUTSIDE RECORDS SUMMARY | 2025-06-09 18:18 | XMS_ITS | Encounter Summary ---
Author Organization [facility] Address [address] [place] [address] Phone Care Team Providers Care Hydroelectric Plant Maintainer Name Role Phone Marcial Thompson MD Primary Care Provider [phone] Dc Torres MD Unavailable Reason for Visit * Reason Comments Medication Refill Encounter Details Date Type Department Care Team (Late st Contact Info) Description 10/20/2023 [facility]ill [facility] [address] [place] [address] Marcial Thompson MD [address] [address] Medication Refill Social History Tobacco Use Types [...] Master's degree (e.g., MA, MS, Margy, MEd, CALL PERSON, YESENIA) 08/20/2020 Sexually Active Control Partners Comments Not Currently Female Sex and Gender Information Value Date Recorded Sex Assigned at Not on file Legal Sex Male 9:24 PM CDT Gender Identity Not on file Sexual Orientation Not on file documented as of this encounter Miscellaneous Notes * Telephone Encounter - Wendie Campos RN - 10/20/2023 1:25 PM CST PRN medication requires review from provider Per nursing clinical judgement, provider to review and approve the medication(s) order(s) if appropriate. Requested Prescriptions Pending Prescriptions Disp Refills albuterol 108 (90 Base) MCG/ACT Aerosol Solution [Pharmacy Med Name: Albuterol Sulfate HFA 108 (90 Base) MCG/ACT Inhalation Aerosol Solution] 18 g 1 Sig: INHALE 1 TO 2 PUFFS BY MOUTH EVERY 4 HOURS NEEDED FOR COUGH Short Acting Inhaled Beta-Agonists Protocol Passed - 10/20/2023 12:52 PM Passed - Visit with relevant provider in past 12 months or upcoming 90 days Recent Visits Date Type Provider Dept 07/06/23 Office Visit [facility] APRN, BIOMASS FACILITATOR [facility] 05/28/23 Telemedicine Marcial Thompson MD [facility] 01/28/23 Telemedicine Pippa Victoria APRN, BIOMASS FACILITATOR [facility] Showing recent visits within past 365 days and meeting all other requirements Future Appointments No visits were found meeting these conditions. Showing future appointments within next 90 days and meeting all other requirements N PLANNER documented in this encounter Plan of Treatment Upcoming Encounters Date Type Department Care Team (Late st Contact Info) Description 06/14/2025 1:00 PM CDT Office Visit [facility] Medical [facility] - Family [facility] [address] [place] [address] Marcial Thompson MD [address] [address] 07/05/2025 9:00 AM CDT Office Visit [facility] Medical Group - Family Medicine [facility] [address] [place] [address] Marcial Thompson MD [address] [place] [address] 07/20/2025 12:00 PM CDT [facility] [place] [address] Dc Torres MD #[address] [address] 07/20/2025 12:00 PM CDT - 07/20/2025 12:30 PM CDT [facility] 1 [place] [address] Dc Torres MD #[address] [address] COLONOSCOPY Scheduled Procedures Name Priority Associated Diagnoses Date/Ti me COLONOSCOPY SCREENING FOR COLON CANCER 07/20/2025 12:00 PM CDT documented as of this encounter Visit Diagnoses Not on filedocumented in this encounter Additional Health Concerns Assessment Noted Time PHQ-9 Depression Total Score: 0 07/02/20 21 3:00 PM CDT documented as of this encounter Care Teams Hydroelectric Plant Maintainer Relationship Specialty Start Date End Date Marcial Thompson MD #[address] [place] [address] PCP - General Family Medicine 08/13/15 Dc Torres MD #[address] [place] [address] Consulting Physician Colon and Rectal Surgery 07/29/22 documented as of this encounter
--- OUTSIDE RECORDS SUMMARY | 2025-06-09 18:18 | XMS_ITS | Encounter Summary ---
Author Organization [facility] Care Team Providers Care Batch Plant Operator Name Role Phone Marcial Thompson MD Primary Care Provider [phone] Dc Torres MD Unavailable Encounter Details Date Type Department Care Team (Latest Contact Info) Description 06/09/2025 Travel Social History Tobacco Use Types Packs/Day Years Used Date Smoking Tobacco: Former Cigarettes 1.5 9 0 10/05/1996 - 10/05/2003 Smokeless Tobacco: Never Alcohol Use Standard Drinks/Week Comments Never 0 (1 standard drink = 0.6 oz pur e alcohol) [facility] Utilities Answer Date Recorded In the past 12 months has [employer], gas, oil, or water [employer] threatened to shut off services in your [...] often do you attend chur ch or congregational services? More than 4 times per year 07/04/2024 Do you belong to any clubs o r organizations such as buddhism groups, unions, fraternal or athletic groups, or [...] Total Score - Questions 1-9 0 03/05 [facility] - Occupational Stress Questionnaire Answer Date Recorded [...] any time in the past 12 m onths, were you homeless or living in a residential (including now)? No 07/04/2024 Education Answer Date Recorded What is the highest level of school you have completed or the highest degree you have received? Master's degree (e.g., MA, MS, Margy, MEd, DOOR TO DOOR SALESPERSON, YESENIA) 08/20/2020 Sexually Active Control Partners Comments Not Currently Abstinence Female Sex and Gender Information Value Date Recorded Sex Assigned at Not on file Legal Sex Male 9:24 PM CDT Gender Identity Not on file Sexual Orientation Not on file documented as of this encounter Plan of Treatment Upcoming Encounters Date Type Department Care Team (Late st Contact Info) Description 06/14/2025 1:00 PM CDT Office Visit [facility] #2 [place] [address] Marcial Thompson MD #[address] [address] 07/05/2025 9:00 AM CDT Office Visit [facility] #[address] [place] [address] Marcial Thompson MD #[address] [address] 07/20/2025 12:00 PM CDT [facility] [address] [place] [address] Dc Torres MD #[address] [address] 07/20/2025 12:00 PM CDT - 07/20/2025 12:30 PM CDT [facility] [address] [place] [address] Dc Torres MD #2 [facility] [address] [place] [address] COLONOSCOPY Scheduled Procedures Name Priority Associated Diagnoses Date/Ti me COLONOSCOPY SCREENING FOR COLON CANCER 07/20/2025 12:00 PM CDT documented as of this encounter Visit Diagnoses Not on filedocumented in this encounter Additional Health Concerns Assessment Noted Time PHQ-9 Depression Total Score: 0 03/20/20 11:23 AM CDT documented as of this encounter Care Teams Batch Plant Operator Relationship Specialty Start Date End Date Marcial Thompson MD #2 [facility] [address] [place] [address] PCP - General Family Medicine 08/13/15 Dc Torres MD #[address] [address] Consulting Physician Colon and Rectal Surgery 07/29/22 documented as of this encounter
--- OUTSIDE RECORDS SUMMARY | 2025-06-09 18:19 | XMS_ITS | Encounter Summary ---
Author Organization [facility] Address [address] [facility] [place] [address] Phone Care Team Providers Care Grain Combine Driver Name Role Phone Marcial Thompson MD Primary Care Provider [phone] [phone] Dc Torres MD Unavailable Reason for Visit * Reason Onset Date Comments Ear Pain Dizziness 08/20/2020 Encounter Details Date Type Department Care Team (Late st Contact Info) Description 08/20/2020 Nurse Triage [facility] [address] [place] [address] Marcial Thompson MD #[address] [address] Ear Pain; Dizziness Social History Tobacco Use Types Packs/Day Years [...] Recorded Total Score - Questions 1-9 0 12/03 Education Answer Date Recorded What is the highest level of school you have completed or the highest degree you have received? Master's degree (e.g., MA, MS, Margy, MEd, SYSTEMS INTEGRATION ANALYST, YESENIA) 08/20/2020 Sexually Active Control Partners Comments Not Currently Female Sex and Gender Information Value Date Recorded Sex Assigned at Not on file Legal Sex Male 9:24 PM CDT Gender Identity Not on file Sexual Orientation Not on file COVID-19 Exposure Response Date Recorded In the last month, have you been in contact with someone who was confirmed or suspected to have Coronavirus / COVID-19? Yes 08/20/2020 12:19 PM LICENSED PRACTICAL NURSE INSTRUCTOR documented as of this encounter Miscellaneous Notes * Telephone Encounter - Lazara Johnson RN - 08/20/2020 12:06 PM LICENSED PRACTICAL NURSE INSTRUCTOR Patient's sister calling with patient on the phone. Patient gave verbal ok to talk to sister about his symptoms SITUATION: Nasal congestion, dizziness, left ear pain, and left facial pain BACKGROUND: Since August 09 ASSESSMENT: Symptom Description / Location: Brown nasal drainage, dizziness unable to get out of bed, left ear pain - no drainage from ear, left facial pain by his ear states skin is not red. Patient does not feel like he can get up out of bed due to dizziness and ear pain. Pain (0-10): 5/10 Temp: Denies fever Treatment / Response: Ibuprofen and Day quil RECOMMENDATION: See care advice and disposition for Guideline First positive answer recorded, all responses to prior questions were negative. If symptoms increase, change or if new symptoms develop, call your HCP or call back. Recommendations were based on caller information and is not a diagnosis. Verified and reviewed all triage information with caller. Reason for Disposition All other earaches (Exceptions: earache lasting < 1 hour, and earache from air travel) ??? Patient wants to be seen Protocols used: [id number]-EE, [id number] Patient and sister snow not feel like patient can safely make it to appointment as she [place] out of [place] so would not be able to bring him to his appointment. Patient was previously positive for COVID and returned to work on 08/09/20 when these symptoms started. They would like a telemedicine visit to discuss with provider and one sooner than first available with care team. Patient scheduled with Sully ZHOU at 2:15 pm. Routing to provider to advise if ok to keep this as a video visit are requested by patient. NSED PRACTICAL NURSE INSTRUCTOR documented in this encounter Plan of Treatment Upcoming Encounters Date Type Department Care Team (Late st Contact Info) Description 06/14/2025 1:00 PM CDT Office Visit [facility] #2 [place] [address] Marcial Thompson MD #[address] [address] 07/05/2025 9:00 AM CDT Office Visit [facility] #2 [facility] [place] [address] Marcial Thompson MD #[address] [address] 07/20/2025 12:00 PM CDT Hospital Encounter [facility] Gi Lab Periop 1 [place] [address] Dc Torres MD #[address] [address] 07/20/2025 12:00 PM CDT - 07/20/2025 12:30 PM CDT [facility] [address] [place] [address] Dc Torres MD #[address] [address] COLONOSCOPY Scheduled Procedures Name Priority Associated Diagnoses Date/Ti me COLONOSCOPY SCREENING FOR COLON CANCER 07/20/2025 12:00 PM CDT documented as of this encounter Visit Diagnoses Not on filedocumented in this encounter Additional Health Concerns Infection Onset Date Last Indicated Resolved Time COVID - 19 06/16/2022 06/16/2022 06/16/2022 9:01 AM CDT COVID - 19 06/16/2022 06/16/2022 06/26/2022 12:1 6 AM CDT COVID - 19 07/17/2022 07/17/2022 07/27/2022 12:1 7 AM CDT Assessment Noted Time PHQ-9 Depression Total Score: 0 12/21/19 10:21 AM CDT documented as of this encounter Care Teams Grain Combine Driver Relationship Specialty Start Date End Date Marcial Thompson MD #2 [facility] [address] [place] [address] PCP - General Family Medicine 08/13/15 Dc Torres MD #2 [facility] [address] [place] [address] Consulting Physician Colon and Rectal Surgery 07/29/22 documented as of this encounter
--- OUTSIDE RECORDS SUMMARY | 2025-06-09 18:19 | XMS_ITS | Encounter Summary ---
Author Organization [facility] Address [address] [place] [address] Phone Care Team Providers Care Manufacturing Controller Name Role Phone Marcial Thompson MD Primary Care Provider [phone] Dc Torres MD Unavailable Reason for Visit * Reason Comments Medication Refill Encounter Details Date Type Department Care Team (Late st Contact Info) Description 01/05/2023 Refill [facility] #2 [place] [address] Marcial Thompson MD #[address] [address] Medication Refill Social History Tobacco Use Types [...] Master's degree (e.g., MA, MS, Margy, MEd, MOBILE PLANT OPERATORS, YESENIA) 08/20/2020 Sexually Active Control Partners Comments Not Currently Female Sex and Gender Information Value Date Recorded Sex Assigned at Not on file Legal Sex Male 9:24 PM CDT Gender Identity Not on file Sexual Orientation Not on file documented as of this encounter Miscellaneous Notes * Telephone Encounter - Wendie Campos RN - 01/05/2023 5:12 PM CDT Medication failed the protocol, provider to review and approve the medication order if appropriate. Requested Prescriptions Pending Prescriptions Disp Refills losartan (COZAAR) 25 MG Tablet [Pharmacy Med Name: Losartan Potassium 25 MG Oral Tablet] 30 Tablet 5 Sig: Take 1 tablet by mouth once daily ARB Protocol Failed - 01/05/2023 5:08 PM Failed - Serum potassium on record in past 12 months No results found for: POTASSIUM, POCTK Failed - GFR on record in past 12 months No results found for: GFRNA Passed - BP on record in the past year Clinician-entered: BP Readings from Last 3 Encounters: 08/12/22 138/88 07/30/22 (!) 158/100 07/17/22 (!) 160/100 Patient-entered: No data recorded Passed - Visit with relevant provider in past year or upcoming 90 days Recent Visits Date Type Provider Dept 10/09/22 Telemedicine Marcial Thompson MD [facility] Victor Manuel 07/17/22 Office Visit Marcial Thompson MD [facility] 06/16/22 Office Visit Debi Pérez APRN, INFUSION THERAPY NURSE [facility] Showing recent visits within past 365 days and meeting all other requirements Future Appointments Date Type Provider Dept 02/12/23 Appointment Marcial Thompson MD [facility] Showing future appointments within next 90 days and meeting all other requirements documented in this encounter Plan of Treatment Upcoming Encounters Date Type Department Care Team (Late st Contact Info) Description 06/14/2025 1:00 PM CDT Office Visit [facility] - Family Medicine - Victor Manuel #2 [place] [address] Marcial Thompson MD #[address] [address] 07/05/2025 9:00 AM CDT [facility] Family [facility] #2 [place] [address] Marcial Thompson MD #[address] [address] 07/20/2025 12:00 PM CDT [facility] [address] [place] [address] Dc Torres MD #[address] [address] 07/20/2025 12:00 PM CDT - 07/20/2025 12:30 PM CDT [facility] [address] [place] [address] Dc Torres MD #[address] [address] COLONOSCOPY Scheduled Procedures Name Priority Associated Diagnoses Date/Ti me COLONOSCOPY SCREENING FOR COLON CANCER 07/20/2025 12:00 PM CDT documented as of this encounter Visit Diagnoses Not on filedocumented in this encounter Additional Health Concerns Assessment Noted Time PHQ-9 Depression Total Score: 0 07/02/20 21 3:00 PM CDT documented as of this encounter Care Teams Manufacturing Controller Relationship Specialty Start Date End Date Marcial Thompson MD #[address] [address] PCP - General Family Medicine 08/13/15 Dc Torres MD #2 [place] [address] Consulting Physician Colon and Rectal Surgery 07/29/22 documented as of this encounter
--- OUTSIDE RECORDS SUMMARY | 2025-06-09 18:19 | XMS_ITS | Clinical Summary ---
Author Organization [facility] [address] [place] [id number] Care Team Providers Care Core Machine Operator Name Role Phone Marcial Thompson MD Primary Care Provider [phone] Allergies Active Allergy Reactions Criticality Noted Date Comments Grass Pollen Dizziness Low 11/16/2018 Medications albuterol HFA (PROAIR HFA) 90 mcg/actuation inhalerIndicatio ns:Seasonal allergic rhinitis, unspecified trigger Inhale 2 puffs every 4 (four) hours as needed for wheezing or shortness of breath. 8.5 g 8 Active guaiFENesin-pseu doephedrine (MUCINEX D) 600-60 mg per 12 hr tablet Take by mouth. 8 Active ALPRAZolam (XANAX) 0.5 mg tablet Take 0.5 mg by mouth daily as needed 6 Active traZODone (DESYREL) 100 mg tablet Take 100 mg by mouth nightly 6 Active losartan (COZAAR) 50 mg tablet Take 1 tablet (50 mg total) by mouth daily 30 tablet 5 Active naproxen (NAPROSYN) 375 mg tablet Take 1 tablet (375 mg total) by mouth 2 (two) times a day with meals for 30 doses 30 tablet 5 06/21/20 25 Active cyclobenzaprine (FLEXERIL) 10 mg tablet Take 1 tablet (10 mg total) by mouth 2 (two) times a day as needed for muscle spasms (Headache or neck pain) 20 tablet 5 Active Active Problems Problem Noted Date Diagnosed Date Ankle fracture, left 11/15/2018 Anxiety 05/12/2016 Fatigue 05/12/2016 PNAR (perennial non-allergic rhinitis) 6 Primary insomnia 05/12/2016 Back pain 10/30/2014 Encounters Date Type Department Care Team Description 06/06/2025 1:15 PM CDT - 06/06/2025 5:21 PM CDT Emergency [address] [address] Trent Barrios, Nonintractable headache, unspecified chronicity pattern, unspecified headache type (Primary Dx); Hypertension, unspecified type Discharge Disposition: Discharge to home or self care from Last 3 Months Surgical History Surgery Date Site/Laterality Comments COSMETIC SURGERY Jaw Wired Medical History Medical History Date Comments Anxiety Asthma Family History Medical History Relation Name Comments Diabetes type II Father Diabetes me llitus type 2; Diabetes type II Paternal Grandmother Melissa betes mellitus type 2; Relation Name Status Comments Father Paternal Grandmother Social History Tobacco Use Types Packs/Day Years Used Date Smoking Tobacco: Former Smokeless Tobacco: Never Alcohol Use Standard Drinks/Week Comments No 0 (1 standard drink = 0.6 oz pur e alcohol) Former Smoker Personal Safety Answer Date Recorded Have you ever been in or are you currently in a harmful physical or emotional relationship or is someone making you feel afraid or unsafe? 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 Not on file Not on fi le Obstetrics History Last Filed Vital Signs Vital Sign Reading Time Taken Comments Blood Pressure 169/113 06/06/2025 4:40 PM CDT Pulse 83 06/06/2025 4:50 PM CDT Temperature 36.3 C (97.3 F) 06/06/2025 10:22 AM CDT Respiratory Rate 19 06/06/2025 4:50 PM CDT Oxygen Saturation 100% 06/06/2025 4:50 PM CDT Inhaled Oxygen Concentration - - Weight 124 kg (273 lb 5.9 oz) 10/08/2024 12:29 P M 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 Height 180.3 cm (5' 11) 06/06/2025 10:22 AM CDT Body Mass Index 38.13 10/08/2024 12:29 PM 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 Plan of Treatment Health Maintenance Due Date Last Done Comments Colon Cancer Screening-Colonoscopy 1980 Depression Screening 1980 Hepatitis C Screening 1980 Varicella Vaccines (1 of 2 - 13+ 2-dose series) 1992 Hepatitis B Screening 1998 Pneumococcal vaccine <65 (1 of 2 - PCV) 1999 HPV Vaccines (1 - 3-dose SCDM series) 2007 Regular Well Visit/Exam 18-64 03/09/2019 03/09/2018 Influenza Vaccine (#1) 2025 DTaP/Tdap/Td Vaccine (2 - Td or Tdap) 07/30/2032 Procedures Procedure Name Priority Date/Time Associated Diagnosis Comments CT CERVICAL SPINE WO CONTRAST ED 06/06/2025 3:32 PM CDT CTA HEAD NECK W WO CONTRAST ED Urgent/IP Urgent 06/06/2025 3:32 PM CDT URINALYSIS AND REFLEX TO MICROSCOPIC AND CULTURE STAT 06/06/2025 2:02 PM CDT ECG 12-LEAD STAT 06/06/2025 1:31 PM CDT EGFR STAT 06/06/2025 1:31 PM CDT DIFFERENTIAL AUTO STAT 06/06/2025 1:3 1 PM CDT COMPREHENSIVE METABOLIC PANEL STAT 06/06/2025 1:31 PM CDT CBC WITH AUTO DIFFERENTIAL STAT 06/06/2025 1:[address] HEAD WO CONTRAST ED 06/06/2025 1 1:58 AM CDT from Last 3 Months Results * CTA Head Neck W WO Contrast (06/06/2025 3:32 PM CDT) Anatomical Region Laterality Modality Head and Neck N/A Computed Tomogra phy 06/06/2025 3:51 PM CDT Narrative 06/06/2025 4:03 PM CDT EXAM DESCRIPTION: CTA HEAD AND NECK WITHOUT AND WITH CONTRAST; CT CERVICAL SPINE WITHOUT CONTRAST REASON FOR STUDY: Acute nontraumatic occipital/suboccipital headache and neck pain. No provided focal neurologic deficits. History of hypertension, asthma, and anxiety. No provided surgical history. TECHNIQUE: CT HEAD/CTA HEAD AND NECK: Axial images were first obtained through the brain without contrast. Axial dynamic scanning technique with dynamic contrast enhancement through the intracranial and extracranial carotid and vertebral arteries. Multiplanar reconstruction. All stenosis measurements are based on NASCET criteria. 3D MIP images rendered on scanning unit and reviewed at time of interpretation. CT CERVICAL SPINE: Axial images through the cervical spine with sagittal and coronal reformatted images. Automated exposure control was used as a dose optimization technique for these examinations. Images saved to PACS. CONTRAST TYPE/DOSE: 90 mL Optiray 350 injected via peripheral IV site without reported incident. COMPARISON: CT head without contrast performed shortly prior to this study. FINDINGS: CT HEAD: BRAIN: No acute intra-axial hemorrhage. No edema, mass effect, midline shift, or herniation. No evidence of acute territorial ischemia or infarct. No suspicious focal white matter lesions with preservation of the de la cruz-white junction. EXTRA-AXIAL SPACES: No extra-axial fluid collections. No unenhanced CT evidence of extra-axial mass. There is mild cerebral and cerebellar volume loss. There is intracranial calcific atherosclerotic disease. CALVARIUM: No acute calvarial fracture. SINUSES/MASTOIDS: Paranasal sinuses clear. Mastoid air cells well-developed and well aerated. ORBITS: No acute abnormality. Ocular lenses and globes normal in conformation and position. OTHER: No other significant abnormality. CT CERVICAL SPINE: ALIGNMENT: Variable minimal stair step anterolisthesis C3 on C4 and C4 on C5 and minimal anterolisthesis C6 on C7 in association with straightening of the cervical lordosis. VERTEBRAE: No acute fracture. Vertebral body heights maintained. Spondylosis. DISCS: Multilevel variable loss of intervertebral disc height of the visualized cervicothoracic spine. HARDWARE: None in the cervical spine. INDIVIDUAL DISC LEVELS: No osseous spinal canal stenosis. No significant osseous neural foraminal stenosis. UPPER THORACIC: Incompletely imaged. No significant osseous spinal stenosis or osseous neural foraminal stenosis. SKULL BASE: No acute abnormality. LUNG APICES: No acute abnormality. NECK SOFT TISSUES: No acute abnormality. OTHER: Study performed following the administration of IV contrast for CT angiography of the head and neck. INTRACRANIAL VESSELS [place]: The anterior, middle, posterior cerebral arteries are all patent. No focal stenosis. No aneurysm. POSTERIOR CIRCULATION: The distal vertebral arteries are patent as is the basilar artery. No aneurysm. BRAIN: No gross evidence of enhancing intracranial lesions. CAROTID CTA RIGHT CAROTIDS: No occlusion, stenosis, or evidence of dissection of the right carotid arterial system. LEFT CAROTIDS: No occlusion, stenosis, or evidence of dissection of the left carotid arterial system. LEFT VERTEBRAL: Patent without evidence of stenosis or dissection. RIGHT VERTEBRAL: Patent without evidence of stenosis or dissection. AORTIC ARCH: Three-vessel aortic arch. Patent subclavian arteries. NECK SOFT TISSUE: No acute abnormality. No thyroid nodule greater than 1 cm. INCLUDED LUNGS: No acute abnormality. OTHER: None. IMPRESSION: 1. No acute intracranial process. 2. No acute fracture of the cervical spine with constellation of spondylolisthesis with straightening of the cervical lordosis, spondylosis, and degenerative disc disease. 3. No occlusion, focal stenosis, or aneurysm of the intracranial arterial vasculature. 4. No occlusion, stenosis, or dissection of the cervical arterial vasculature. THIS IS AN ELECTRONICALLY VERIFIED FINAL REPORT 06/06/2025 4:03 PM - Electronically signed by Sarkis LEDBETTER T: Report ID: [id number] Reading Location: [id number] Procedure Note Sarkis Whyte MD - 06/06/2025 EXAM DESCRIPTION: CTA HEAD AND NECK WITHOUT AND WITH CONTRAST; CT CERVICAL SPINE WITHOUT CONTRAST REASON FOR STUDY: Acute nontraumatic occipital/suboccipital headache andneck pain. No provided focal neurologic deficits. History of hypertension, asthma, and anxiety. No provided surgical history. TECHNIQUE: CT HEAD/CTA HEAD AND NECK: Axial images were first obtainedthrough the brain without contrast. Axial dynamic scanning technique with dynamic contrast enhancement throughthe intracranial and extracranial carotid and vertebral arteries. Multiplanar reconstruction. All stenosis measurements are based on NASCET criteria.3D MIP images rendered on scanning unit and reviewed at time ofinterpretation. CT CERVICAL SPINE: Axial images through the cervical spine with [place] coronal reformatted images. Automated exposure control was used as a dose optimization technique forthese examinations. Images saved to PACS. CONTRAST TYPE/DOSE: 90 mL Optiray 350 injected via peripheral IV site without reported incident. COMPARISON: CT head without contrast performed shortly prior to thisstudy. FINDINGS: CT HEAD: BRAIN: No acute intra-axial hemorrhage. No edema, mass effect, midlineshift, or herniation. No evidence of acute territorial ischemia or infarct. No suspicious focal white matter lesions with preservation of the de la cruz-white junction. EXTRA-AXIAL SPACES: No extra-axial fluid collections. No unenhanced CT evidence of extra-axial mass. There is mild cerebral and cerebellarvolume loss. There is intracranial calcific atherosclerotic disease. CALVARIUM: No acute calvarial fracture. SINUSES/MASTOIDS: Paranasal sinuses clear. Mastoid air cellswell-developed and well aerated. ORBITS: No acute abnormality. Ocular lenses and globes normal in conformation and position. OTHER: No other significant abnormality. CT CERVICAL SPINE: ALIGNMENT: Variable minimal stair step anterolisthesis C3 on C4 and C4 onC5 and minimal anterolisthesis C6 on C7 in association with straightening ofthe cervical lordosis. VERTEBRAE: No acute fracture. Vertebral body heights maintained. Spondylosis. DISCS: Multilevel variable loss of intervertebral disc height of the visualized cervicothoracic spine. HARDWARE: None in the cervical spine. INDIVIDUAL DISC LEVELS: No osseous spinal canal stenosis. No significant osseous neural foraminal stenosis. UPPER THORACIC: Incompletely imaged. No significant osseous spinalstenosis or osseous neural foraminal stenosis. SKULL BASE: No acute abnormality. LUNG APICES: No acute abnormality. NECK SOFT TISSUES: No acute abnormality. OTHER: Study performed following the administration of IV contrast forCT angiography of the head and neck. INTRACRANIAL VESSELS [place]: The anterior, middle, posterior cerebral arteries areall patent. No focal stenosis. No aneurysm. POSTERIOR CIRCULATION: The distal vertebral arteries are patent as is the basilar artery. No aneurysm. BRAIN: No gross evidence of enhancing intracranial lesions. CAROTID CTA RIGHT CAROTIDS: No occlusion, stenosis, or evidence of dissection of the right carotid arterial system. LEFT CAROTIDS: No occlusion, stenosis, or evidence of dissection of theleft carotid arterial system. LEFT VERTEBRAL: Patent without evidence of stenosis or dissection. RIGHT VERTEBRAL: Patent without evidence of stenosis or dissection. AORTIC ARCH: Three-vessel aortic arch. Patent subclavian arteries. NECK SOFT TISSUE: No acute abnormality. No thyroid nodule greater than 1cm. INCLUDED LUNGS: No acute abnormality. OTHER: None. IMPRESSION: 1. No acute intracranial process. 2. No acute fracture of the cervical spine with constellation of spondylolisthesis with straightening of the cervical lordosis,spondylosis, and degenerative disc disease. 3. No occlusion, focal stenosis, or aneurysm of the intracranialarterial vasculature. 4. No occlusion, stenosis, or dissection of the cervical arterial vasculature. THIS IS AN ELECTRONICALLY VERIFIED FINAL REPORT 06/06/2025 4:03 PM - Electronically signed by Sarkis Whyte M.D. KHLOE T: Report ID: [id number] Reading Location: [id number] us Trent Barrios DO IMG CT PROCEDURES Final Result * CT Cervical Spine WO Contrast (06/06/2025 3:32 PM CDT) Anatomical Region Laterality Modality Spine N/A Computed Tomogra phy 06/06/2025 3:51 PM CDT Narrative 06/06/2025 4:03 PM CDT EXAM DESCRIPTION: CTA HEAD AND NECK WITHOUT AND WITH CONTRAST; CT CERVICAL SPINE WITHOUT CONTRAST REASON FOR STUDY: Acute nontraumatic occipital/suboccipital headache and neck pain. No provided focal neurologic deficits. History of hypertension, asthma, and anxiety. No provided surgical history. TECHNIQUE: CT HEAD/CTA HEAD AND NECK: Axial images were first obtained through the brain without contrast. Axial dynamic scanning technique with dynamic contrast enhancement through the intracranial and extracranial carotid and vertebral arteries. Multiplanar reconstruction. All stenosis measurements are based on NASCET criteria. 3D MIP images rendered on scanning unit and reviewed at time of interpretation. CT CERVICAL SPINE: Axial images through the cervical spine with sagittal and coronal reformatted images. Automated exposure control was used as a dose optimization technique for these examinations. Images saved to PACS. CONTRAST TYPE/DOSE: 90 mL Optiray 350 injected via peripheral IV site without reported incident. COMPARISON: CT head without contrast performed shortly prior to this study. FINDINGS: CT HEAD: BRAIN: No acute intra-axial hemorrhage. No edema, mass effect, midline shift, or herniation. No evidence of acute territorial ischemia or infarct. No suspicious focal white matter lesions with preservation of the de la cruz-white junction. EXTRA-AXIAL SPACES: No extra-axial fluid collections. No unenhanced CT evidence of extra-axial mass. There is mild cerebral and cerebellar volume loss. There is intracranial calcific atherosclerotic disease. CALVARIUM: No acute calvarial fracture. SINUSES/MASTOIDS: Paranasal sinuses clear. Mastoid air cells well-developed and well aerated. ORBITS: No acute abnormality. Ocular lenses and globes normal in conformation and position. OTHER: No other significant abnormality. CT CERVICAL SPINE: ALIGNMENT: Variable minimal stair step anterolisthesis C3 on C4 and C4 on C5 and minimal anterolisthesis C6 on C7 in association with straightening of the cervical lordosis. VERTEBRAE: No acute fracture. Vertebral body heights maintained. Spondylosis. DISCS: Multilevel variable loss of intervertebral disc height of the visualized cervicothoracic spine. HARDWARE: None in the cervical spine. INDIVIDUAL DISC LEVELS: No osseous spinal canal stenosis. No significant osseous neural foraminal stenosis. UPPER THORACIC: Incompletely imaged. No significant osseous spinal stenosis or osseous neural foraminal stenosis. SKULL BASE: No acute abnormality. LUNG APICES: No acute abnormality. NECK SOFT TISSUES: No acute abnormality. OTHER: Study performed following the administration of IV contrast for CT angiography of the head and neck. INTRACRANIAL VESSELS [place]: The anterior, middle, posterior cerebral arteries are all patent. No focal stenosis. No aneurysm. POSTERIOR CIRCULATION: The distal vertebral arteries are patent as is the basilar artery. No aneurysm. BRAIN: No gross evidence of enhancing intracranial lesions. CAROTID CTA RIGHT CAROTIDS: No occlusion, stenosis, or evidence of dissection of the right carotid arterial system. LEFT CAROTIDS: No occlusion, stenosis, or evidence of dissection of the left carotid arterial system. LEFT VERTEBRAL: Patent without evidence of stenosis or dissection. RIGHT VERTEBRAL: Patent without evidence of stenosis or dissection. AORTIC ARCH: Three-vessel aortic arch. Patent subclavian arteries. NECK SOFT TISSUE: No acute abnormality. No thyroid nodule greater than 1 cm. INCLUDED LUNGS: No acute abnormality. OTHER: None. IMPRESSION: 1. No acute intracranial process. 2. No acute fracture of the cervical spine with constellation of spondylolisthesis with straightening of the cervical lordosis, spondylosis, and degenerative disc disease. 3. No occlusion, focal stenosis, or aneurysm of the intracranial arterial vasculature. 4. No occlusion, stenosis, or dissection of the cervical arterial vasculature. THIS IS AN ELECTRONICALLY VERIFIED FINAL REPORT 06/06/2025 4:03 PM - Electronically signed by Sarkis Whyte M.D. KHLOE T: Report ID: [id number] Reading Location: [id number] Procedure Note Sarkis Whyte MD - 06/06/2025 EXAM DESCRIPTION: CTA HEAD AND NECK WITHOUT AND WITH CONTRAST; CT CERVICAL SPINE WITHOUT CONTRAST REASON FOR STUDY: Acute nontraumatic occipital/suboccipital headache andneck pain. No provided focal neurologic deficits. History of hypertension, asthma, and anxiety. No provided surgical history. TECHNIQUE: CT HEAD/CTA HEAD AND NECK: Axial images were first obtainedthrough the brain without contrast. Axial dynamic scanning technique with dynamic contrast enhancement throughthe intracranial and extracranial carotid and vertebral arteries. Multiplanar reconstruction. All stenosis measurements are based on NASCET criteria.3D MIP images rendered on scanning unit and reviewed at time ofinterpretation. CT CERVICAL SPINE: Axial images through the cervical spine with [place] coronal reformatted images. Automated exposure control was used as a dose optimization technique forthese examinations. Images saved to PACS. CONTRAST TYPE/DOSE: 90 mL Optiray 350 injected via peripheral IV site without reported incident. COMPARISON: CT head without contrast performed shortly prior to thisstudy. FINDINGS: CT HEAD: BRAIN: No acute intra-axial hemorrhage. No edema, mass effect, midlineshift, or herniation. No evidence of acute territorial ischemia or infarct. No suspicious focal white matter lesions with preservation of the de la cruz-white junction. EXTRA-AXIAL SPACES: No extra-axial fluid collections. No unenhanced CT evidence of extra-axial mass. There is mild cerebral and cerebellarvolume loss. There is intracranial calcific atherosclerotic disease. CALVARIUM: No acute calvarial fracture. SINUSES/MASTOIDS: Paranasal sinuses clear. Mastoid air cellswell-developed and well aerated. ORBITS: No acute abnormality. Ocular lenses and globes normal in conformation and position. OTHER: No other significant abnormality. CT CERVICAL SPINE: ALIGNMENT: Variable minimal stair step anterolisthesis C3 on C4 and C4 onC5 and minimal anterolisthesis C6 on C7 in association with straightening ofthe cervical lordosis. VERTEBRAE: No acute fracture. Vertebral body heights maintained. Spondylosis. DISCS: Multilevel variable loss of intervertebral disc height of the visualized cervicothoracic spine. HARDWARE: None in the cervical spine. INDIVIDUAL DISC LEVELS: No osseous spinal canal stenosis. No significant osseous neural foraminal stenosis. UPPER THORACIC: Incompletely imaged. No significant osseous spinalstenosis or osseous neural foraminal stenosis. SKULL BASE: No acute abnormality. LUNG APICES: No acute abnormality. NECK SOFT TISSUES: No acute abnormality. OTHER: Study performed following the administration of IV contrast forCT angiography of the head and neck. INTRACRANIAL VESSELS [place]: The anterior, middle, posterior cerebral arteries areall patent. No focal stenosis. No aneurysm. POSTERIOR CIRCULATION: The distal vertebral arteries are patent as is the basilar artery. No aneurysm. BRAIN: No gross evidence of enhancing intracranial lesions. CAROTID CTA RIGHT CAROTIDS: No occlusion, stenosis, or evidence of dissection of the right carotid arterial system. LEFT CAROTIDS: No occlusion, stenosis, or evidence of dissection of theleft carotid arterial system. LEFT VERTEBRAL: Patent without evidence of stenosis or dissection. RIGHT VERTEBRAL: Patent without evidence of stenosis or dissection. AORTIC ARCH: Three-vessel aortic arch. Patent subclavian arteries. NECK SOFT TISSUE: No acute abnormality. No thyroid nodule greater than 1cm. INCLUDED LUNGS: No acute abnormality. OTHER: None. IMPRESSION: 1. No acute intracranial process. 2. No acute fracture of the cervical spine with constellation of spondylolisthesis with straightening of the cervical lordosis,spondylosis, and degenerative disc disease. 3. No occlusion, focal stenosis, or aneurysm of the intracranialarterial vasculature. 4. No occlusion, stenosis, or dissection of the cervical arterial vasculature. THIS IS AN ELECTRONICALLY VERIFIED FINAL REPORT 06/06/2025 4:03 PM - Electronically signed by Sarkis LEDBETTER T: Report ID: [id number] Reading Location: [place] [id number] Trent Barrios DO IMG CT PROCEDURES Final Result * Urinalysis reflex to microscopic and culture Urine (06/06/2025 2:02 PM CDT) Color, ur Yellow Yellow Clarity, ur Clear Clear [facility] Specific gravity, ur 1.009 1.003 - 1.030 [facility] pH, urine 6.0 [facility] Comment: Interpretive Data U rine pH is affected by diet, medications, systemic acid-base disturbances, and renal tubular function. pH may affect urinary stone formation. For example, urine pH below 6.0 may help reduce the tendency for calcium phosphate stones and pH greater than 6.0 may reduce the tendency for uric acid stone formation. Source: [facility] Current Interpretive Data was last revised on 2017 Protein, ur ql Negative Negative [facility] Glucose, ur ql Negative Negative [facility] Ketones, ur Negative Negative [facility] Bilirubin, ur Negative Negative [facility] Blood, ur Negative Negative [facility] Urobilinogen, ur <2.0 <2.0 mg/dL [facility] Nitrite, ur Negative Negative [facility] Leukocyte esterase, ur Negative Negative [facility] UA reflex comment Reflex conditions for microscopic UA and culture not met. [facility] Urine 06/06/2025 2:02 PM CDT 06/06/2025 2:04 PM CDT Trent Barrios DO LAB MICROBIOLOGY - GENERAL ORD ERABLES Final Result [facility] [address] [facility] [place] [address] * ECG 12 lead (06/06/2025 1:31 PM CDT) Ventricular Rate EKG/Min 82 BPM [facility] Atrial Rate 82 BPM [facility] GA-Interval (MSEC) 152 ms [facility] QRS-Interval (MSEC) 92 ms [facility] QT-Interval (MSEC) 366 ms [facility] QTc 427 ms [facility] P [place] 39 degrees [facility] R [place] 46 degrees [facility] T [place] 1 degrees [facility] Diagnosis Normal sinus rhythm Possible Inferior infarct , age undetermined Abnormal ECG When compared with ECG of 08-OCT-2024 12:28, No significant change was found Confirmed by AGUSTINA CHEN M.D. ([id number]) on 06/06/2025 7:47:46 PM [facility] 06/06/2025 1:31 PM CDT 06/06/2025 7:47 PM CDT us Trent Barrios DO ECG ORDERABLES Final Result Performing Organization Address City/[facility] Co de Phone Number [facility] * eGFR (06/06/2025 1:31 PM CDT) eGFR >90 >=60 mL/min/1. 73 m2 Comment: Interpretive Data Reference Interval Normal >/= 90 mL/min/1.73m2 Mildly decreased* 60 - 89 mL/min/1.73m2 Mildly to moderately decreased 45 - 59 mL/min/1.73m2 Moderately to severely decreased 30 - 44 mL/min/1.73m2 Severely decreased 15 - 29 mL/min/1.73m2 Kidney Failure < 15 mL/min/1.73m2 *Relative to young adult level Estimated glomerular filtration rate is determined by the 2020 CKD-EPI equation recommended by the National Kid[employer] (A Unifying Approach to GFR Estimation: Recommendations of the NKF-ASK Task Force on Reassessing the Inclusion of Race in Diagnosing Kidney Disease, JASN 2020). The CKD-EPI equation should not be used for patients with unstable renal function and has not been validated in children and those over 70. Current interpretive data was last reviewed 2021. Blood 06/06/2025 1:31 PM CDT 06/06/2025 1:34 PM CDT us Trent Barrios DO LAB BLOOD ORDERABLES Final Res ult RAMÓN [address] [facility] [place] [address] * Differential, auto (06/06/2025 1:31 PM CDT) Pathologist [facility] Neutrophil abs 3.31 1.50 - 6.50 K/cumm Imm gran abs 0.03 0.00 - 0.10 K/cumm [facility] Lymphocyte abs 1.37 0.80 - 3.30 K/cumm [facility] Monocyte abs 0.43 0.20 - 0.80 K/cumm [facility] Eosinophil abs 0.07 0.00 - 0.50 K/cumm [facility] Basophil abs 0.02 0.00 - 0.10 K/cumm [facility] Neutrophil pct 63.3 % [facility] Comment: Interpretive Data Percent cell count reference ranges are not reported, since discordance with absolute values may lead to misinterpretation of CBC data. Current Interpretive Data was last revised on 2018. Imm gran pct 0.6 % [facility] Comment: Interpretive Data Percent cell count reference ranges are not reported, since discordance with absolute values may lead to misinterpretation of CBC data. Current Interpretive Data was last revised on 2018. Lymphocyte pct 26.2 % [facility] Comment: Interpretive Data Percent cell count reference ranges are not reported, since discordance with absolute values may lead to misinterpretation of CBC data. Current Interpretive Data was last revised on 2018. Monocyte pct 8.2 % [facility] Comment: Interpretive Data Percent cell count reference ranges are not reported, since discordance with absolute values may lead to misinterpretation of CBC data. Current Interpretive Data was last revised on 2018. Eosinophil pct 1.3 % [facility] Comment: Interpretive Data Percent cell count reference ranges are not reported, since discordance with absolute values may lead to misinterpretation of CBC data. Current Interpretive Data was last revised on 2018. Basophil pct 0.4 % [facility] Comment: Interpretive Data Percent cell count reference ranges are not reported, since discordance with absolute values may lead to misinterpretation of CBC data. Current Interpretive Data was last revised on 2018. Blood 06/06/2025 1:31 PM CDT 06/06/2025 1:34 PM CDT us Trent Barrios DO LAB BLOOD ORDERABLES Final Res ult Performing Organization Address City/[facility] Co de Phone Number RAMÓN [address] [place] [address] * CBC with auto differential (06/06/2025 1:31 PM CDT) [facility] WBC 5.23 3.80 - 9.90 K/cumm Hgb 13.7 13.0 - 17.5 g/dL [facility] Hct 39.2 38.9 - 50.3 % [facility] Plt 174 150 - 400 K/cumm [facility] MPV 9.9 9.1 - 12.3 fL [facility] RBC 4.60 4.30 - 5.80 M/cumm [facility] MCV 85.2 81.3 - 96.4 fL [facility] MCH 29.8 27.1 - 33.3 pg [facility] MCHC 34.9 32.3 - 35.7 g/dL [facility] RDW CV 12.8 11.1 - 14.9 % [facility] RDW SD 38.9 35.7 - 48.1 fL [facility] NRBC abs 0.00 0.00 - 0.01 K/cumm [facility] Blood 06/06/2025 1:31 PM CDT 06/06/2025 1:34 PM CDT us Trent Barrios DO LAB BLOOD ORDERABLES Final Res ult Performing Organization Address City/[facility] Co de Phone Number [facility] [address] [place] [address] * (ABNORMAL) Comprehensive metabolic panel (06/06/2025 1:31 PM CDT) Pathologist [facility] Sodium 140 135 - 145 mmol/L Potassium, pl 4.3 3.3 - 4.9 mmol/L [facility] Chloride 103 97 - 110 mmol/L [facility] CO2 27 22 - 32 mmol/L [facility] Anion gap 10 2 - 15 mmol/L [facility] BUN 10 6 - 25 mg/dL [facility] Creatinine 0.73(L) 0.80 - 1.30 mg/dL [facility] Glucose 104 70 - 199 mg/dL [facility] Comment: Interpretive Data Fasting glucose >/= 126 mg/dl is diagnostic for diabetes. Fasting is defined as no caloric intake for at least 8 hours. Fasting glucose between 100 mg/dl to 125 mg/dl is diagnostic of prediabetes. In a patient with classic symptoms of hyperglycemia or hyperglycemic crisis, a random glucose >/= 200 mg/dl is diagnostic for diabetes. In the absence of unequivocal hyperglycemia, results should be confirmed by repeat testing. The classification and Diagnosis of Diabetes Diabetes Care 2021; 46: S19-S40. Current interpretive data was last revised 2022. Calcium 8.9 8.5 - 10.3 mg/dL [facility] Bilirubin, total 0.3 0.1 - 1.2 mg/dL [facility] Protein, pl 6.3(L) 6.5 - 8.5 g/dL [facility] Albumin 4.2 3.5 - 5.0 g/dL [facility] Alk phos 88 40 - 130 Units/L [facility] ALT 40 7 - 55 Units/L [facility] AST 23 10 - 50 Units/L [facility] Blood 06/06/2025 1:31 PM CDT 06/06/2025 1:34 PM CDT us Trent Barrios DO LAB BLOOD ORDERABLES Final Res ult [facility] [address] [facility] Department of Laboratories [place], [place] [id number] * CT Head WO Contrast (06/06/2025 11:58 AM CDT) Anatomical Region Laterality Modality Head and Neck N/A Computed Tomogra phy 06/06/2025 12:3 2 PM CDT Narrative 06/06/2025 12:35 PM CDT EXAM DESCRIPTION: CT HEAD WO CONTRAST REASON FOR STUDY: Headache, sudden, severe c/o htn and left sided headache. States day to having worse headache of life. States pain shoots down left side of neck. States to taking htn medication. Admits BP was similarly high 1 month ago. TECHNIQUE: Axial images acquired through the brain without intravenous contrast. Images stored on PACS. Automated exposure control was used as a dose optimization technique for this examination. COMPARISON: None available FINDINGS: BRAIN: No hemorrhage, edema or mass effect. No recent infarct. Normal white matter. EXTRA-AXIAL SPACES: No fluid collections. No masses. CALVARIUM: No fracture. SINUSES/MASTOIDS: No fluid or mucosal thickening. ORBITS: No significant abnormality. OTHER: No other significant abnormality. IMPRESSION: No acute intracranial findings. THIS IS AN ELECTRONICALLY VERIFIED FINAL REPORT 06/06/2025 12:35 PM - Electronically signed by Christian KAISER T: Report ID: [id number] Reading Location: [id number] Procedure Note Christian Mcbride MD - 06/06/2025 EXAM DESCRIPTION: CT HEAD WO CONTRAST REASON FOR STUDY: Headache, sudden, severe c/o htn and left sided headache. States to having worse headacheof life. States pain shoots down left side of neck. States to taking htn medication. Admits BP was similarly high 1 month ago. TECHNIQUE: Axial images acquired through the brain without intravenous contrast. Images stored on PACS. Automated exposure control was used asa dose optimization technique for this examination. COMPARISON: None available FINDINGS: BRAIN: No hemorrhage, edema or mass effect. No recent infarct. Normal white matter. EXTRA-AXIAL SPACES: No fluid collections. No masses. CALVARIUM: No fracture. SINUSES/MASTOIDS: No fluid or mucosal thickening. ORBITS: No significant abnormality. OTHER: No other significant abnormality. IMPRESSION: No acute intracranial findings. 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
--- OUTSIDE RECORDS SUMMARY | 2025-06-09 18:19 | XMS_ITS | Patient Health Record ---
Author Organization 1 OF [facility]fe [facility]val[facility] Address [address] [facility] [address] [place] [address] Care Team Providers Care Purchase Price Analyst Name Role Phone Marcial Thompson Primary Care Provider Andres Brown Unavailable [phone] Allergies No Known Allergies Reason For Referral No Information Medications Medication SIG (Take, Route, Fr equency, Duration) Notes Start Date End Date Status Claritin-D 12 Hour A ctive Losartan Potassium A ctive Social History Tobacco Use: Social History Observation Description Date Details (start date - stop date) Former Smoker NA - NA Tobacco Use/Smoking Question Answer Notes Are you a former smoker How long has it been since you last smoked? > 10 years Plan Of Treatment No Information Insurance Providers Payer Name Payer Address Payer Phone Subscriber Number Group Number Insured Name Patient Relationship to Insured Coverage Start Date Coverage End Date [facility] [address] [address] [place] [address] [id number] Bill Hodges Self - patient is the insured Medical (General) History Medical History History ICD Code HTN
--- OUTSIDE RECORDS SUMMARY | 2025-06-09 18:19 | XMS_ITS | Encounter Summary ---
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 Name Role Phone Marcial Thompson MD Primary Care Provider [phone] Dc Torres MD Unavailable Reason for Visit * Reason Comments Medication Refill Encounter Details Date Type Department Care Team (Late st Contact Info) Description 10/06/2022 Refill [facility] - Family Medicine [facility] [address] [place] [address] Marcial Thompson MD [address] [address] Medication Refill Social History Tobacco Use Types [...] Master's degree (e.g., MA, MS, Margy, MEd, ENGINEERING DRAFTER, YESENIA) 08/20/2020 Sexually Active Control Partners Comments [...] was confirmed or suspected to have Coronavirus/COVID-19? 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 Requested Prescriptions Pending Prescriptions Disp Refills losartan (COZAAR) 25 MG Tablet [Pharmacy Med Name: Losartan Potassium 25 MG Oral Tablet] 30 Tablet 2 Sig: Take 1 tablet by mouth once daily ARB Protocol Failed - 10/06/2022 7:48 PM Failed - Serum potassium on record [...] days Recent Visits Date Type Provider Dept 07/17/22 Office Visit Marcial Thompson MD [facility] 06/16/22 Office Visit Debi Pérez APRN, BACTERIOLOGY TEACHER [facility] Showing recent visits within past 365 days and meeting all other requirements Future Appointments Date Type Provider Dept 10/23/22 Appointment Marcial Thompson MD [facility] Showing future appointments within next 90 days and meeting all other requirements NEL SALES DIRECTOR documented in this encounter Plan of Treatment Upcoming Encounters Date Type Department Care Team (Late st Contact Info) Description 06/14/2025 1:00 PM CDT Office Visit [facility] [address] [place] [address] Marcial Thompson MD #[address] [address] 07/05/2025 9:00 AM CDT Office Visit [facility] [address] [place] [address] Marcial Thompson MD #[address] [address] 07/20/2025 12:00 PM CDT Hospital Encounter [facility] [address] [place] [address] Dc Torres MD #[address] [address] 07/20/2025 12:00 PM CDT - 07/20/2025 12:30 PM CDT Surgery [facility] [address] [place] [address] Dc Torres MD #[address] [address] COLONOSCOPY Scheduled Procedures Name Priority Associated Diagnoses Date/Ti me COLONOSCOPY SCREENING FOR COLON CANCER 07/20/2025 12:00 PM CDT documented as of this encounter Visit Diagnoses Not on filedocumented in this encounter Additional Health Concerns Assessment Noted Time PHQ-9 Depression Total Score: 0 07/02/20 3:00 PM CDT documented as of this encounter Care Teams Blasting Contract Miner Relationship Specialty Start Date End Date Marcial Thompson MD #[address] [address] PCP - General Family Medicine 08/13/15 Dc Torres MD #[address] [address] Consulting Physician Colon and Rectal Surgery 07/29/22 documented as of this encounter
--- NOTE | 2025-06-09 18:38 | ECG_ITS ---
Test Date: 2025-06-09 19:01:27 Measurements Intervals [place] Rate: 82 P: 31 WY: 159 QRS: 49 QRSD: 88 T: 7 QT: 347 QTc: 406 Interpretive Statements SINUS RHYTHM Compared to ECG 02/21/2025 09:33:38 No significant changes Electronically Signed On 06-10-2025 10:49:29 CDT by Neville Wagner M.D.
--- NOTE | 2025-06-09 18:42 | ED.HA ---
HPI - Headache General Chief Complaint: Headache Stated Complaint: severe Headachex9 Time Seen by Provider: 06/09/25 17:41 History of Present Illness HPI Narrative: Patient is a 45-year-old male who presents to the ER within 9 day history of a headache and neck pain. He reports his symptoms started with a sore throat, but has none he radiated and settled in his right occipital bone. Patient reports his pain is worse when he wakes up in the morning. He also endorses right jaw/neck swelling. Patient reports he went into the ER 3 days ago for evaluation and was told everything was fine. Patient reports he went to the dentist earlier today because he was worried he had a dental abscess. The dentist told him his teeth and gums looked fine. Patient reports he started coughing up green mucus several days ago so he started himself on amoxicillin (patient had this left over from a previous diagnosis). He denies any difficulty swallowing, mastoid tenderness, pain with chewing, or neck stiffness. Patient endorses intermittent nausea, intermittent visual changes, and congestion. He endorses a recent history of COVID and high blood pressure. Related Data Home Medications ?Medication ?Instructions ?Recorded ?Confirmed ?Last Taken ?Type albuterol sulfate 90 mcg/actuation 2 puff inhalation DIRECTED 07/30/22 02/21/25 Unknown History aerosol inhaler losartan 25 mg tablet 25 mg PO DAILY 07/30/22 02/21/25 Unknown History azithromycin 250 mg tablet 250 mg PO DIRECTED 07/19/24 02/21/25 Unknown History methylprednisolone 4 mg tablets in 4 mg PO DIRECTED 07/19/24 02/21/25 Unknown History a dose pack Allergies Allergy/AdvReac Type Severity Reaction Status Date / Time No Known Allergies Allergy Verified 06/09/25 16:18 Review of Systems Review of Systems: All systems reviewed & are unremarkable except as noted in HPI and below PMFSH Past Medical History Medical History Hypertension Surgical History Surgical History No pertinent past surgical history Family History Family History Mother Family history of arthritis Exam Narrative: GENERAL: Well appearing, obese, non-toxic, in no acute distress. HEAD: Normocephalic, atraumatic. NECK: Supple. + Cervical adenopathy R side. RESPIRATORY: Airway patent, respirations nonlabored. Clear to auscultation bilaterally, no rales, rhonchi, wheezing. CARDIOVASCULAR: Regular rate and rhythm without murmurs, rubs, or gallops. Peripheral pulses 2+ and equal bilaterally. ABDOMINAL: Soft, nontender, nondistended, no hepatosplenomegaly. Normoactive BS. MUSCULOSKELETAL: Moves all extremities. Strength/ROM intact without gross deformities. SKIN: Warm, dry, normal color. No rashes. NEURO: A&O X3. Speech clear. Cranial nerves II-XII intact. No ataxic movements. PSYCHIATRIC: Appropriate mood and affect. Normal interaction. Course Vital Signs Vital signs: Vital Signs Temperature 36.4 C 06/09/25 16:19 Pulse Rate 94 06/09/25 16:19 Respiratory Rate 20 06/09/25 16:19 Blood Pressure 175/111 H 06/09/25 16:19 Pulse Oximetry 99 06/09/25 16:19 Oxygen Delivery Room Air 06/09/25 16:19 Temperature 36.6 C 06/09/25 19:03 Pulse Rate 86 06/09/25 19:03 Respiratory Rate 16 06/09/25 19:03 Blood Pressure 162/107 H 06/09/25 19:03 Pulse Oximetry 100 06/09/25 19:03 Oxygen Delivery Room Air 06/09/25 16:19 MDM - Headache MDM Narrative Medical decision making narrative: Patient is a 45-year-old male who presents to the ER within 9 day history of a headache and neck pain. He reports his symptoms started with a sore throat, but has none he radiated and settled in his right occipital bone. Patient reports his pain is worse when he wakes up in the morning. He also endorses right jaw/neck swelling. Patient reports he went into the ER 3 days ago for evaluation and was told everything was fine. Patient reports he went to the dentist earlier today because he was worried he had a dental abscess. The dentist told him his teeth and gums looked fine. Patient reports he started coughing up green mucus several days ago so he started himself on amoxicillin (patient had this left over from a previous diagnosis). He denies any difficulty swallowing, mastoid tenderness, pain with chewing, or neck stiffness. Patient endorses intermittent nausea, intermittent visual changes, and congestion. He endorses a recent history of COVID and high blood pressure. * No complaints of temporal pain. NO shooting pain into his face. Labs Ordered: CBC, CMP, TSH, strep, UA, PTT, INR, mono test, magnesium, UDS Imaging Ordered: CTA brain carotid, chest x-ray Medications Ordered: 1 L normal saline IV bolus x2, Reglan 10 mg IV, magnesium 1 g IV, Decadron 10 mg IV, Benadryl 25 mg IV, Toradol 15 mg IV Results: Patient's CTA indicates HEAD CTA: Normal brain parenchymal volume. No acute infarction, hemorrhage, mass or mass effect. No ventriculomegaly or midline shift. Basilar cisterns are patent. Paranasal sinuses and mastoids are pneumatized. No depressed skull fractures. There are codominant vertebral arteries. The intracranial arteries are within normal limits without significant stenosis, occlusion or aneurysm. NECK CTA: Lung apices are normal. No significant stenosis of the carotid arteries. No evidence for occlusion or dissection. Vertebral arteries are normal in their extent. The origin of the carotid and vertebral arteries are within normal limits. No cervical lymphadenopathy. Pt's chest x-ray indicates no acute abnormalities. Diagnosis: Headache Patient Education/Shared MDM: Results of lab work and imaging shared with patient. He endorses improvement of symptoms following medication administration. Patient strongly advised to maintain hydration status upon discharge and follow-up with his PCP as soon as possible. He was advised to not take his other antibiotics without a prescription. He will be discharged home with a prescription for Zofran and a Medrol Dosepak. Strict return precautions provided. Patient verbalized understanding and is in agreement with plan. Vital signs stable at time of discharge. All questions answered. Differential Diagnosis Differential diagnosis: Likely migraine, subarachnoid hemorrhage, headache and sinusitis Lab Data Attestation: I reviewed the patient's lab results. 06/09/25 18:51 06/09/25 18:51 Labs: Lab Results 06/09/25 06/09/25 Range/Units 18:51 19:00 WBC 7.1 (4.5-10.0) K/mm3 RBC 4.98 (4.6-6.20) M/mm3 Hgb 14.7 (14.0-18.0) g/dL Hct 42.0 (42.0-52.0) % MCV 84.3 (80-100) fl MCH 29.5 (26-34) pg MCHC 35.0 (32-36) g/dl RDW 12.7 (11.5-14.5) % Plt Count 212 (150-375) k/mm3 MPV 9.8 (7.4-10.4) fl Immature Gran % (Auto) 0.4 (0-0.5) % Neut % (Auto) 61.9 (45.5-73.1) % Lymph % (Auto) 26.1 (18.3-44.2) % [place] % (Auto) 9.9 H (2.6-8.5) % Eos % (Auto) 1.4 (0-4.4) % Baso % (Auto) 0.3 (0.2-1.2) % Lymph # (Auto) 1.85 (0.9-3.2) K/mm3 [place] # (Auto) 0.7 H (0.1-0.6) K/mm3 Eos # (Auto) 0.1 (0-0.3) K/mm3 Baso # (Auto) 0.0 (0.0-0.1) K/mm3 Abs Immat Gran (auto) 0.03 (0.00-0.031) K/mm3 Absolute Neuts (auto) 4.4 (1.3-6.7) K/mm3 Absolute Nucleated RBC 0.000 (0.0-0.012) K/mm3 Nucleated RBC % 0.0 (0.0-0.2) % PT 13.4 (11.1-14.7) Seconds INR 1.0 APTT 26.0 (22.3-36.8) Seconds Sodium 138 (137-145) mmol/L Potassium 4.2 (3.4-5.0) mmol/L Chloride 101 (98-107) mmol/L Carbon Dioxide 29 (22-30) mmol/L Anion Gap 8 (4-12) mmol/L BUN 12 (9-20) mg/dL Creatinine 0.72 (0.7-1.3) mg/dL Estim Creat Clear Calc 155 ml/min Estimated GFR > 60 (59 - ) Glucose 84 (65-110) mg/dL Calcium 9.1 (8.4-10.2) mg/dL Magnesium 2.2 (1.6-2.3) mg/dL Total Bilirubin 0.4 (0.2-1.3) mg/dL AST 38 (17-59) U/L ALT 66 H (6-50) U/L Alkaline Phosphatase 86 (38-126) U/L Troponin I < 0.012 (0.000-0.034) ng/mL Total Protein 7.3 (6.3-8.2) g/dL Albumin 4.4 (3.5-5.1) g/dL TSH 4.340 (0.465-4.680) uIU/mL Urine Color Yellow (Yellow) Urine Appearance Clear (Clear) Urine pH 6.0 (5.0-9.0) Ur Specific [place] 1.017 (1.001-1.035) Urine Protein Negative (Negative) mg/dL Urine Glucose (UA) Negative (Negative) mg/dL Urine Ketones Negative (Negative) mg/dL Ur Blood (Man) Negative (Negative) Urine Nitrate Negative (Negative) Urine Bilirubin Negative (Negative) Urine Urobilinogen 0.2 (<2.0) mg/dL Leukocyte Esterase Rfl Negative (Negative) PAUL/UL Urine Opiates Screen Negative (Negative) Urine Methadone Screen Negative (Negative) Ur Barbiturates Screen Negative (Negative) Ur Phencyclidine Scrn Negative (Negative) Ur Amphetamine Screen Negative (Negative) U Benzodiazepines Scrn Negative (Negative) Urine Cocaine Screen Negative (Negative) U Cannabinoids Screen Negative (Negative) Monoscreen Negative (Negative) Influenza A (RT-PCR) Negative (Negative) Influenza B (RT-PCR) Negative (Negative) RSV (RT-PCR) Negative (Negative) SARS-CoV-2 RNA (RT-PCR) Negative (Negative) Group A Strep (PCR) Not detected (Negative) Imaging Data Attestation: I personally reviewed and interpreted this imaging study as follows: Radiologist's impression: Impressions Chest X-Ray 06/09/25 19:32 IMPRESSION: 1: NO ACUTE CARDIOPULMONARY DISEASE. Head/Neck CTA 06/09/25 20:01 IMPRESSION: 1.: Unremarkable CT angiogram of the head and neck. Discharge Plan Discharge Clinical Impression: Headache Patient Disposition: Home Condition: Stable Instructions: Antibiotic Form, Migraine Headache (ED) Patient Language: Gibraltarian Prescriptions: New methylprednisolone [Medrol (Jose Daniel)] 4 mg tablets,dose pack See Rx Instructions PO .COMPLEX Qty: 21 0RF Rx Instructions: for 6 days ondansetron 4 mg tablet,disintegrating 4 mg PO Q8H Qty: 14 0RF No Action losartan 25 mg tablet 25 mg PO DAILY albuterol sulfate 90 mcg/actuation HFA aerosol inhaler 2 puff INHALATION DIRECTED azithromycin 250 mg tablet 250 mg PO DIRECTED methylprednisolone 4 mg tablets,dose pack 4 mg PO DIRECTED Follow-up/Referrals: Dominick Monroe MD [Physician, Family Practice] Referral Note: primary care provider UNKNOWN,DOCTOR [Primary Care Provider] Stand Alone Forms: Work/School Release IP Time of Disposition: 20:56
[2025-06-09 19:03] VITALS: BP 162/107; PULSE 86; RESP 16; TEMP 36.6; O2SAT 100
[2025-06-09] MEDS: dexAMETHasone SOD PHOS INJ 10 MG/ML 1 ML VIAL IV PUSH (19:07)
[2025-06-09] MEDS: METOCLOPRAMIDE HCL INJ 10 MG/2 ML VIAL IV PUSH (19:07)
[2025-06-09] MEDS: MAGNESIUM SULF 1 GM/D5W 100 ML 1 GM/100 ML BAG IVPB (19:07)
[2025-06-09] MEDS: SODIUM CHLORIDE 0.9% IV 1,000 ML 999 ML IV CONT ×2 (19:08)
[2025-06-09 19:14] LABS: Hematocrit 42.0 % (42.0-52.0); Hemoglobin 14.7 g/dL (14.0-18.0); Immature Granulocyte Percent A 0.4 % (0-0.5); Lymphocytes Absolute Auto 1.85 K/mm3 (0.9-3.2); Mean Corpuscular HGB Conc 35.0 g/dl (32-36); Mean Corpuscular Hemoglobin 29.5 pg (26-34); Mean Corpuscular Volume 84.3 fl (80-100); Nucleated Red Blood Cells Absolute Auto 0.000 K/mm3 (0.0-0.012); Nucleated Red Blood Cells Perc 0.0 % (0.0-0.2); Platelet Count Result 212 k/mm3 (150-375); Red Blood Count 4.98 M/mm3 (4.6-6.20); White Blood Count 7.1 K/mm3 (4.5-10.0)
[2025-06-09 19:25] LABS: Glucose Urine UA Negative (Negative); Leukocyte Esterase Ur Negative LEU/UL (Negative); Nitrate Urine Negative (Negative); Specific Grav Ur 1.017 (1.001-1.035)
[2025-06-09 19:26] LABS: Add Urine Microscopic? NO; Alanine Aminotransferase 66 U/L (6-50); Albumin Level 4.4 g/dL (3.5-5.1); Alkaline Phosphatase 86 U/L (38-126); Anion Gap 8 mmol/L (4-12); Appearance Urine Clear (Clear); Aspartate Amino Transferase 38 U/L (17-59); Bilirubin,Total 0.4 mg/dL (0.2-1.3); Blood Urea Nitrogen 12 mg/dL (9-20); Calcium 9.1 mg/dL (8.4-10.2); Carbon Dioxide 29 mmol/L (22-30); Chloride 101 mmol/L (98-107); Estimated CRCL calculation 155 ml/min; Estimated Glomerular Filt Rate > 60; Glucose 84 mg/dL (65-110); Magnesium 2.2 mg/dL (1.6-2.3); Potassium 4.2 mmol/L (3.4-5.0); Sodium 138 mmol/L (137-145); Total Protein 7.3 g/dL (6.3-8.2)
[2025-06-09 19:35] LABS: Negative Monotest Control Negative (Negative); Positive Monotest Control Positive (Positive)
[2025-06-09 19:36] LABS: Cannabinoid Screen Urine Negative (Negative)
[2025-06-09 19:37] LABS: INR 1.0; Partial Thromboplastin Time 26.0 Seconds (22.3-36.8); Prothrombin Time 13.4 Seconds (11.1-14.7)
[2025-06-09 19:38] LABS: Troponin I < 0.012 ng/mL (0.000-0.034)
[2025-06-09 19:39] LABS: Strep Group A RT-PCR NOT DETECTED (Negative)
[2025-06-09 19:50] LABS: Influenza A QL RT-PCR Negative (Negative); Influenza B QL RT-PCR Negative (Negative); RSV RNA, RT-PCR Negative (Negative); SARS-CoV-2 RNA PCR Negative (Negative)
[2025-06-09 19:56] LABS: Thyroid Stimulating Hormone 4.340 uIU/mL (0.465-4.680)
[2025-06-09] MEDS: KETOROLAC 15 MG/ML VIAL (*BKC) IV PUSH (21:04)
[2025-06-09 21:05] VITALS: BP 157/98; PULSE 85; RESP 97; O2SAT 18
== END 2025-06-09 21:13 | disposition home or self-care (01) ==
PROVIDERS: Emergency Provider Registered Nurse
DX: R51.9 Headache, unspecified (principal); Z20.822 Contact with and (suspected) exposure to COVID-19; I10 Essential (primary) hypertension; Z86.16 Personal history of COVID-19; Z79.899 Other long term (current) drug therapy
CPT/HCPCS: 36415; 70496; 70498; 71046; 80053; 80307; 81003; 83735; 84443; 84484; 85025; 85610; 85730; 86308; 87637; 87651; 93005; 96365; 96375; 99284; J1100; J1200; J1885; J2765; J3475; J7030; Q9967